=== PATIENT | male | born 1960 | race African-American/Black ===

== ENCOUNTER → 2018-07-30 | Outpatient (CLI) | payer OTHER ==
[2015-07-06 15:00] VITALS: BP 113/74
[~2018-07-30] MED LIST: ACET325T9 PO; AMIO200T PO; AMLO10TA8 PO; ASPI-482 PO; ASPI325T11 PO; ATOR10TA60 PO; ATOR20TA58 PO; CINA30TA2 PO; CLON0.1T PO; CLOP75TA PO; DOCU100C28 PO; FERR325T14 PO; FERR325T72 PO; GLYB5TAB3 PO; INSU100V13 SQ; ISOS30TA4 PO; LISI-338 PO; METO25TA4 PO; METO50TA6 PO; Metoprolol Tartrate PO; NITR0.4T SL; OXYC1TAB15 PO; OXYC1TAB7 PO; Oxycodone Hcl/Acetaminophen PO; REGADENOSON 0.4 MG/5 ML DISP.SYRIN. IV ONE; TICA90TA PO
--- NOTE | 2018-07-30 12:52 | RAD ---
MR#: [id number] Date of Study: 07/30/2018 Ordering Physician: MAURICE BRITT, Referring Physician: SALEEM ARGUELLES Tech: RT Amalia BrooksR) (N) APPROVED REPORT Test Type: Pharmacological Stress Nurse/Tech: Yanna Brennan R.N., Courtney Myers RN Test Indications: chest pain, CAD Cardiac History: Hypertension, , Family history, CAD, bypass, stents Medications: See Electronic Medical Record Medical History: See Electronic Medical Record Resting ECG: SB with PAC's Resting Heart Rate: 51 bpm Resting Blood Pressure: 114/73mmHg Pretest Chest Pain: No chest pain Nurse/Tech Notes S1S2. Lungs sounded clear. Consent: The procedure was explained to the patient in lay terms. Informed consent was witnessed. Nelson eout was entered into [employer]. History and Stress Test performed by Yanna Brennan R.N., Courtney meza RN Pharm. Details Pharmacologic stress testing was performed using 0.4mg per 5ml of regadenoson given intravenously ove r 7-10 seconds. Stress Symptoms No chest pain or symptoms. POST EXERCISE Reason for Termination: Infusion complete Max HR: 93 bpm Max Blood Pressure: 123/56mmHg Chest Pain: No. Arrhythmia: No. rare PVC ST Change: No. INTERPRETATION Stress EKG Conclusion: Baseline EKG showed sinus rhythm. No ischemic changes at peak stress. No arr hythmias. Imaging Protocol IMAGE PROTOCOL: Rest Tc-99m/stress Tc-99m 1 day Rest: Stress: Viability: Radiopharm.Tc99m [id number] Sestamibi Dose10.2mCi 33mCi Duration 13min. 13min. Img Date 07/30/2018 07/30/2018 Inj-Img [id number]. 60min. Rest Admin Site:IV - Left AntecubitalAdministrator:RT Cecilia (R)(N) Stress Admin Site: IV - Left AntecubitalAdministrator: AMANDA Sal STRESS DATA End Diast. Vol.141.0mlLVEDV index BSA64.0ml End Syst. Vol.39.0mlLVESV index BSA17.0ml Myocardial Jlkz344.0gEject. Vclpllnm49.0% Stress Scores Regional WT0.00Summed WT0.00 Regional WM0.00Summed WM1.00 LV Perfusion Scintigraphic images showed small reversible defect involving the apical wall consistent with ischemi a. Wall Motion Normal left ventricle systolic function with ejection fraction calculated at 72%. LV Perf. Quant 17 Seg. SSS6.00 17 Seg. SRS1.00 17 Seg. SDS5.00 Stress Defect Extent (% LAD)3.80Rest Defect Extent (% LAD)0.00Rev. Defect Extent (% LAD)3.80 Stress Defect Extent (% LCX) 20.00Rest Defect Extent (% LCX)5.00Rev. Defect Extent (% LCX)12.50 Stress Defect Extent (% RCA)0.00Rest Defect Extent (% RCA)0.00Rev. Defect Extent (% RCA)0.00 Stress Defect Extent (% EFRAIN)5.40Rest Defect Extent (% EFRAIN)1.70Rev. Defect Extent (% EFRAIN)4.10 Conclusion 1. Regadenoson cardioisotope stress test showed small amount of apical wall ischemia. 2. Normal left ventricular systolic function with ejection fraction calculated at 72%. 3. Low to intermediate risk for cardiac events. Signed by : Pee Barragan, Electronically Approved : 07/30/2018 12:52:07
== END | disposition home or self-care (01) ==
LOC: NM 08:12
PROVIDERS: ATTEND Internal Medicine Cardiovascular Disease
DX: I25.10 Atherosclerotic heart disease of native coronary artery without angina pectoris (principal); R07.9 Chest pain, unspecified; I10 Essential (primary) hypertension; Z82.49 Family history of ischemic heart disease and other diseases of the circulatory system; Z95.1 Presence of aortocoronary bypass graft
CPT/HCPCS: 78452; 93017; 96374; A9500; J2785

== ENCOUNTER 2019-02-06 05:44 | Inpatient (IN) | payer OTHER ==
[~2019-02-06] VITALS: Ht 185.4 cm; Wt 97.5 kg
[~2019-02-06 05:44] MED LIST changes: -REGADENOSON 0.4 MG/5 ML DISP.SYRIN. IV ONE
[2019-02-06] MEDS ORDERED: ISOS60TA2 PO (06:02)
[2019-02-06] MEDS ORDERED: EZET10TA20 PO (06:02)
[2019-02-06] MEDS ORDERED: LISI-338 PO (06:02)
[2019-02-06] MEDS ORDERED: GABA300C18 PO (06:02)
--- NOTE | 2019-02-06 06:17 | PHYS DOC ---
Past Medical History Past Medical History: CAD, Diabetes-Type II, High Cholesterol, Hypertension, [place] Additional Past Medical Histor: HIATEL HERNIA Past Surgical History: Coronary Bypass Surgery, Other Additional Past Surgical Histo: 4 STENTS PLACED, RIGHT ROTATOR CUFF, EYE SX X 2 Alcohol Use: None Drug Use: None Adult General Chief Complaint Chief Complaint: RECTAL BLEED HPI HPI 58-year-old gentleman presenting to the emergency department today with bright red blood in his stools over the past 12 hours. He has had 2 stools with large amounts of blood in the toilet. He does not feel lightheaded or have any pain. He has a history of a CABG and is on ticagrelor and aspirin. Location GI tract. No alleviating or exacerbating factors. Review of systems is negative for chest pain shortness of breath abdominal pain vomiting fevers or chills. All other review of systems negative. ED course: 58-year-old male presenting with a GI bleed. Vital signs unremarkable. Abdomen is soft and nontender without rebound tenderness or guarding. Blood work EKG and troponin ordered. EKG obtained and reviewed by myself shows sinus rhythm with regular rate. ST segments congruent. Not s uggestive of ACS. Otherwise hemoglobin is dropping one point from previous. I spoke with GI director utilization management. We will admit the patient to Dr. Chavez. Allergies Allergies Allergies Coded Allergies Type Severity Reaction Last Updated Verified No Known Drug Allergies 03/19/16 No Physical Exam Physical Exam Constitutional: Well developed, well nourished, no acute distress, non-toxic appearance. [] HENT: Normocephalic, atraumatic, bilateral external ears normal, oropharynx moist, no oral exudates, nose normal. [] Eyes: PERRLA, EOMI, conjunctiva normal, no discharge. [] Neck: Normal range of motion, no tenderness, supple, no stridor. [] Cardiovascular:Heart rate regular rhythm, no murmur [] Lungs & Thorax: Bilateral breath sounds clear to auscultation [] Abdomen: Bowel sounds normal, soft, no tenderness, no masses, no pulsatile masses. Skin: Warm, dry, no erythema, no rash. [] Back: No tenderness, no CVA tenderness. [] Extremities: No tenderness, no cyanosis, no clubbing, ROM intact, no edema. [] Neurologic: Alert and oriented X 3, normal motor function, normal sensory function, no focal deficits noted. [] Psychologic: Affect normal, judgement normal, mood normal. [] Current Patient Data Vital Signs Vital Signs Date Time Temp Pulse Resp B/P (MAP) Pulse Ox O2 Delivery O2 Flow Rate FiO2 02/06/19 07:19 66 17 121/78 (92) 100 Room Air 02/06/19 05:50 98.3 98.3 Lab Values Laboratory Tests Test 02/06/19 06:00 02/06/19 06:10 Troponin I Quantitative < 0.017 ng/mL (0.000-0.055) White Blood Count 8.1 x10^3/uL (4.0-11.0) Red Blood Count 3.84 x10^6/uL (4.30-5.70) L Hemoglobin 12.1 g/dL (13.0-17.5) L Hematocrit 36.2 % (39.0-53.0) L Mean Corpuscular Volume 94 fL (79-100) Mean Corpuscular Hemoglobin 32 pg (25-35) Mean Corpuscular Hemoglobin Concent 34 g/dL (31-37) Red Cell Distribution Width 13.9 % (11.5-14.5) Platelet Count 238 x10^3/uL (140-400) Neutrophils (%) (Auto) 62 % (31-73) Lymphocytes (%) (Auto) 27 % (24-48) Monocytes (%) (Auto) 9 % (0-9) Eosinophils (%) (Auto) 2 % (0-3) Basophils (%) (Auto) 1 % (0-3) Neutrophils # (Auto) 5.0 x10^3/uL (1.8-7.7) Lymphocytes # (Auto) 2.1 x10^3/uL (1.0-4.8) Monocytes # (Auto) 0.7 x10^3/uL (0.0-1.1) Eosinophils # (Auto) 0.2 x10^3/uL (0.0-0.7) Basophils # (Auto) 0.0 x10^3/uL (0.0-0.2) Prothrombin Time 13.4 SEC (11.7-14.0) Prothrombin Time INR 1.1 (0.8-1.1) Activated Partial Thromboplast Time 30 SEC (24-38) Urine Collection Type Void Urine Color Yellow Urine Clarity Clear Urine pH 5.0 Urine Specific [place] 1.020 Urine Protein Negative mg/dL (NEG-TRACE) Urine Glucose (UA) Negative mg/dL (NEG) Urine Ketones (Stick) Negative mg/dL (NEG) Urine Blood Moderate (NEG) Urine Nitrite Negative (NEG) Urine Bilirubin Negative (NEG) Urine Urobilinogen Dipstick 0.2 mg/dL (0.2 mg/dL) Urine Leukocyte Esterase Negative (NEG) Urine RBC 0 /HPF (0-2) Urine WBC 0 /HPF (0-4) Urine Squamous Epithelial Cells Few /LPF Urine Bacteria 0 /HPF (0-FEW) Urine Mucus Mod /LPF Stool Occult Blood Positive (NEG) Sodium Level 141 mmol/L (136-145) Potassium Level 3.9 mmol/L (3.5-5.1) Chloride Level 106 mmol/L (98-107) Carbon Dioxide Level 26 mmol/L (21-32) Anion Gap 9 (6-14) Blood Urea Nitrogen 14 mg/dL (8-26) Creatinine 1.0 mg/dL (0.7-1.3) Estimated GFR (Cockcroft-Gault) 92.2 BUN/Creatinine Ratio 14 (6-20) Glucose Level 140 mg/dL (70-99) H Calcium Level 8.5 mg/dL (8.5-10.1) Total Bilirubin 0.9 mg/dL (0.2-1.0) Direct Bilirubin 0.1 mg/dL (0.0-0.2) Aspartate Amino Transferase (AST) 13 U/L (15-37) L Alanine Aminotransferase (ALT) 16 U/L (16-63) Alkaline Phosphatase 70 U/L (46-116) Total Protein 7.2 g/dL (6.4-8.2) Albumin 3.6 g/dL (3.4-5.0) Albumin/Globulin Ratio 1.0 (1.0-1.7) Laboratory Tests 02/06/19 06:10 Laboratory Tests 02/06/19 06:10 EKG EKG [] Radiology/Procedures Radiology/Procedures [] Course & Med Decision Making Course & Med Decision Making Pertinent Labs and Imaging studies reviewed. (See chart for details) [] Dragon Disclaimer Dragon Disclaimer This electronic medical record was generated, in whole or in part, using a voice recognition dictation system. Departure Departure Impression: Primary Impression: GI bleed Disposition: ADMITTED INPATIENT Admitting Physician: SWATI Condition: STABLE Referrals: VIOLETTE GREGORIO MD (PCP) JOHNNA TOURE MD Feb 06, 2019 06:17
[2019-02-06 06:33] LABS: CALCIUM 8.5 mg/dL (8.5-10.1); GFR 92.2; POTASSIUM 3.9 mmol/L (3.5-5.1)
[2019-02-06 06:42] LABS: FECAL OB PT POSITIVE (NEG)
[2019-02-06 06:47] LABS: ALBUMIN 3.6 g/dL (3.4-5.0); BASO % 1 % (0-3); DIRECT BILIRUBIN 0.1 mg/dL (0.0-0.2); EOS # 0.2 x10^3/uL (0.0-0.7); EOS % 2 % (0-3); HEMATOCRIT 36.2 % (39.0-53.0); HEMOGLOBIN 12.1 g/dL (13.0-17.5); LYMPH # 2.1 x10^3/uL (1.0-4.8); LYMPH % 27 % (24-48); MEAN CORPUSCULAR HEMOGLOBIN 32 pg (25-35); MEAN CORPUSCULAR HGB CONC 34 g/dL (31-37); MEAN CORPUSCULAR VOLUME 94 fL (79-100); MONO # 0.7 x10^3/uL (0.0-1.1); MONO % 9 % (0-9); NEUT % 62 % (31-73); PLATELET COUNT 238 x10^3/uL (140-400); RED BLOOD COUNT 3.84 x10^6/uL (4.30-5.70); RED CELL DISTRIBUTION WIDTH 13.9 % (11.5-14.5); TOTAL BILIRUBIN 0.9 mg/dL (0.2-1.0); TOTAL PROTEIN 7.2 g/dL (6.4-8.2); WHITE BLOOD COUNT 8.1 x10^3/uL (4.0-11.0)
[2019-02-06 06:52] LABS: BILIRUBIN,URINE NEGATIVE (NEG); CLARITY,URINE CLEAR; COLOR,URINE YELLOW; NITRITE,URINE NEGATIVE (NEG); PROTEIN,URINE NEGATIVE (NEG-TRACE); UROBILINOGEN,URINE 0.2 mg/dL (0.2 mg/dL)
[2019-02-06 07:04] LABS: PROTHROMBIN TIME PATIENT 13.4 SEC (11.7-14.0)
[2019-02-06 07:09] LABS: BACTERIA,URINE 0 /HPF (0-FEW); RBC,URINE 0 /HPF (0-2); SQUAMOUS EPITHELIAL CELL,UR FEW /LPF; WBC,URINE 0 /HPF (0-4)
--- NOTE | 2019-02-06 07:35 | PDOC1 ---
History and Physical Date of Admission Date of Admission DATE: 02/06/19 TIME: 07:33 Identification/Chief Complaint Chief Complaint SEEN IN Emergency department today with bright red blood in his stools over the past 12 hours. He has had 2 stools with large amounts of blood in the toilet. He does not feel lightheaded or have any pain. He has a history of a CABG and is on ticagrelor and aspirin. Review of systems is negative for chest pain shortness of breath abdominal pain vomiting fevers or chills. 58-year-old male presenting with a GI bleed. Vital signs unremarkable. Abdomen is soft and nontender without rebound tenderness or guarding. GI CONSULTED hemoglobin is dropping one point from previous. Past Medical History Past Medical History Past Medical History Past Medical History: CAD, Diabetes-Type II, High Cholesterol, Hypertension, [place] Additional Past Medical Histor: HIATEL HERNIA Past Surgical History: Coronary Bypass Surgery, Other History of coronary artery bypass graft surgery, coronary artery disease. Additional Past Surgical Histo: 4 STENTS PLACED, RIGHT ROTATOR CUFF, EYE SX X 2 Alcohol Use: None Drug Use: None family hx htn Cardiovascular: CAD, CHF, HTN, Hyperlipidemia Endocrine: Diabetes Past Surgical History Past Surgical History: CABG, Other Family History Family History Past Medical History Cardiovascular: CAD, CHF, HTN, Hyperlipidemia Endocrine: Diabetes Past Surgical History Past Surgical History: CABG, Other (coronary stenting) Family History Family History: Coronary Artery Disease Social History No ALCOHOL: none Drugs: None Lives: with Family Domestic Violence: Neg Family History: Coronary Artery Disease Social History ALCOHOL: none Drugs: None Current Problem List Problem List Problems Medical Problems: (1) GI bleed Status: Acute Current Medications Current Medications Active Scripts Active Brilinta (Ticagrelor) 90 Mg Tablet 90 Mg PO BID Nitrostat (Nitroglycerin) 0.4 Mg Tab.subl 0.4 Mg SL PRN Q5MIN PRN Reported Zetia (Ezetimibe) 10 Mg Tablet 10 Mg PO DAILY Gabapentin (Gabapentin) 300 Mg Capsule 300 Mg PO BID Isosorbide Mononitrate Er (Isosorbide Mononitrate) 60 Mg Tab.er.24h 60 Mg PO DAILY Lisinopril 5 Mg Tablet 5 Mg PO DAILY Aspir 81 (Aspirin) 81 Mg Tablet.dr 1 Tab PO DAILY LAST DOSE GIVEN: DATE: 2014 TIME: 9:00 am NEXT DOSE DUE: DATE: 2014 TIME: 9:00 am Metoprolol Tartrate 25 Mg Tablet 0.5 Tab PO BID LAST DOSE GIVEN: DATE: 2014 TIME: 9:00 am NEXT DOSE DUE: DATE: 2014 TIME: 9:00 pm Allergies Allergies: Coded Allergies: No Known Drug Allergies (Unverified , 03/19/16) ROS Review of System Review of Systems Review of Systems Constitutional: Denies fever or chills. [] Eyes: Denies change in visual acuity. [] HENT: Denies nasal congestion or sore throat. [] Respiratory: Denies cough, reports shortness of breath. [] Cardiovascular: Reports chest pain, denies edema. [] GI: Denies abdominal pain, nausea, vomiting, POS FOR bloody stools [] : Denies dysuria. [] Musculoskeletal: Denies back pain or joint pain. [] Integument: Denies rash. [] Neurologic: Denies headache, focal weakness or sensory changes. [] Psychiatric: Denies depression or anxiety. [] 14 PT ROS OTHERWISE NEG Gastrointestinal: Yes Melena Physical Exam Physical Exam Physical Exam Physical Exam Constitutional: Well developed, well nourished, no acute distress, non-toxic appearance. [] HENT: Normocephalic, atraumatic, bilateral external ears normal, oropharynx moist, no oral exudates, nose normal. [] Eyes: PERRLA, EOMI, conjunctiva normal, no discharge. [] Neck: Normal range of motion, no tenderness, supple, no stridor. [] Cardiovascular:Heart rate regular rhythm, no murmur [] Lungs & Thorax: Bilateral breath sounds clear to auscultation [] Abdomen: Bowel sounds normal, soft, no tenderness, no masses, no pulsatile masses. Skin: Warm, dry, no erythema, no rash. [] Back: No tenderness, no CVA tenderness. [] Extremities: No tenderness, no cyanosis, no clubbing, ROM intact, no edema. [] Neurologic: Alert and oriented X 3, normal motor function, normal sensory function, no focal deficits noted. [] Psychologic: Affect normal, judgement normal, mood normal. [] General: Alert, Oriented X3, Cooperative Abdomen: Soft Rectal Exam: not examined PELVIC: Examination not indicated Extremities: No cyanosis Neuro: Normal speech, Cranial nerves 3-12 NL Psych/Mental Status: Mood NL Vitals Vitals Vital Signs Date Time Temp Pulse Resp B/P (MAP) Pulse Ox O2 Delivery O2 Flow Rate FiO2 02/06/19 05:50 98.3 71 13 138/91 (107) 99 Room Air 98.3 Labs Labs Laboratory Tests Test 02/06/19 06:00 02/06/19 06:10 Troponin I Quantitative < 0.017 ng/mL (0.000-0.055) White Blood Count 8.1 x10^3/uL (4.0-11.0) Red Blood Count 3.84 x10^6/uL (4.30-5.70) Hemoglobin 12.1 g/dL (13.0-17.5) Hematocrit 36.2 % (39.0-53.0) Mean Corpuscular Volume 94 fL (79-100) Mean Corpuscular Hemoglobin 32 pg (25-35) Mean Corpuscular Hemoglobin Concent 34 g/dL (31-37) Red Cell Distribution Width 13.9 % (11.5-14.5) Platelet Count 238 x10^3/uL (140-400) Neutrophils (%) (Auto) 62 % (31-73) Lymphocytes (%) (Auto) 27 % (24-48) Monocytes (%) (Auto) 9 % (0-9) Eosinophils (%) (Auto) 2 % (0-3) Basophils (%) (Auto) 1 % (0-3) Neutrophils # (Auto) 5.0 x10^3/uL (1.8-7.7) Lymphocytes # (Auto) 2.1 x10^3/uL (1.0-4.8) Monocytes # (Auto) 0.7 x10^3/uL (0.0-1.1) Eosinophils # (Auto) 0.2 x10^3/uL (0.0-0.7) Basophils # (Auto) 0.0 x10^3/uL (0.0-0.2) Prothrombin Time 13.4 SEC (11.7-14.0) Prothromb Time International Ratio 1.1 (0.8-1.1) Activated Partial Thromboplast Time 30 SEC (24-38) Urine Collection Type Void Urine Color Yellow Urine Clarity Clear Urine pH 5.0 Urine Specific Perry 1.020 Urine Protein Negative mg/dL (NEG-TRACE) Urine Glucose (UA) Negative mg/dL (NEG) Urine Ketones (Stick) Negative mg/dL (NEG) Urine Blood Moderate (NEG) Urine Nitrite Negative (NEG) Urine Bilirubin Negative (NEG) Urine Urobilinogen Dipstick 0.2 mg/dL (0.2 mg/dL) Urine Leukocyte Esterase Negative (NEG) Urine RBC 0 /HPF (0-2) Urine WBC 0 /HPF (0-4) Urine Squamous Epithelial Cells Few /LPF Urine Bacteria 0 /HPF (0-FEW) Urine Mucus Mod /LPF Stool Occult Blood Positive (NEG) Sodium Level 141 mmol/L (136-145) Potassium Level 3.9 mmol/L (3.5-5.1) Chloride Level 106 mmol/L (98-107) Carbon Dioxide Level 26 mmol/L (21-32) Anion Gap 9 (6-14) Blood Urea Nitrogen 14 mg/dL (8-26) Creatinine 1.0 mg/dL (0.7-1.3) Estimated GFR (Cockcroft-Gault) 92.2 BUN/Creatinine Ratio 14 (6-20) Glucose Level 140 mg/dL (70-99) Calcium Level 8.5 mg/dL (8.5-10.1) Total Bilirubin 0.9 mg/dL (0.2-1.0) Direct Bilirubin 0.1 mg/dL (0.0-0.2) Aspartate Amino Transf (AST/SGOT) 13 U/L (15-37) Alanine Aminotransferase (ALT/SGPT) 16 U/L (16-63) Alkaline Phosphatase 70 U/L (46-116) Total Protein 7.2 g/dL (6.4-8.2) Albumin 3.6 g/dL (3.4-5.0) Albumin/Globulin Ratio 1.0 (1.0-1.7) Laboratory Tests Test 02/06/19 06:00 02/06/19 06:10 Troponin I Quantitative < 0.017 ng/mL (0.000-0.055) White Blood Count 8.1 x10^3/uL (4.0-11.0) Red Blood Count 3.84 x10^6/uL (4.30-5.70) Hemoglobin 12.1 g/dL (13.0-17.5) Hematocrit 36.2 % (39.0-53.0) Mean Corpuscular Volume 94 fL (79-100) Mean Corpuscular Hemoglobin 32 pg (25-35) Mean Corpuscular Hemoglobin Concent 34 g/dL (31-37) Red Cell Distribution Width 13.9 % (11.5-14.5) Platelet Count 238 x10^3/uL (140-400) Neutrophils (%) (Auto) 62 % (31-73) Lymphocytes (%) (Auto) 27 % (24-48) Monocytes (%) (Auto) 9 % (0-9) Eosinophils (%) (Auto) 2 % (0-3) Basophils (%) (Auto) 1 % (0-3) Neutrophils # (Auto) 5.0 x10^3/uL (1.8-7.7) Lymphocytes # (Auto) 2.1 x10^3/uL (1.0-4.8) Monocytes # (Auto) 0.7 x10^3/uL (0.0-1.1) Eosinophils # (Auto) 0.2 x10^3/uL (0.0-0.7) Basophils # (Auto) 0.0 x10^3/uL (0.0-0.2) Prothrombin Time 13.4 SEC (11.7-14.0) Prothromb Time International Ratio 1.1 (0.8-1.1) Activated Partial Thromboplast Time 30 SEC (24-38) Urine Collection Type Void Urine Color Yellow Urine Clarity Clear Urine pH 5.0 Urine Specific Perry 1.020 Urine Protein Negative mg/dL (NEG-TRACE) Urine Glucose (UA) Negative mg/dL (NEG) Urine Ketones (Stick) Negative mg/dL (NEG) Urine Blood Moderate (NEG) Urine Nitrite Negative (NEG) Urine Bilirubin Negative (NEG) Urine Urobilinogen Dipstick 0.2 mg/dL (0.2 mg/dL) Urine Leukocyte Esterase Negative (NEG) Urine RBC 0 /HPF (0-2) Urine WBC 0 /HPF (0-4) Urine Squamous Epithelial Cells Few /LPF Urine Bacteria 0 /HPF (0-FEW) Urine Mucus Mod /LPF Stool Occult Blood Positive (NEG) Sodium Level 141 mmol/L (136-145) Potassium Level 3.9 mmol/L (3.5-5.1) Chloride Level 106 mmol/L (98-107) Carbon Dioxide Level 26 mmol/L (21-32) Anion Gap 9 (6-14) Blood Urea Nitrogen 14 mg/dL (8-26) Creatinine 1.0 mg/dL (0.7-1.3) Estimated GFR (Cockcroft-Gault) 92.2 BUN/Creatinine Ratio 14 (6-20) Glucose Level 140 mg/dL (70-99) Calcium Level 8.5 mg/dL (8.5-10.1) Total Bilirubin 0.9 mg/dL (0.2-1.0) Direct Bilirubin 0.1 mg/dL (0.0-0.2) Aspartate Amino Transf (AST/SGOT) 13 U/L (15-37) Alanine Aminotransferase (ALT/SGPT) 16 U/L (16-63) Alkaline Phosphatase 70 U/L (46-116) Total Protein 7.2 g/dL (6.4-8.2) Albumin 3.6 g/dL (3.4-5.0) Albumin/Globulin Ratio 1.0 (1.0-1.7) Images Images Procedures Left heart catheterization. Left ventriculogram. Selective coronary angiogram. Aortic root injection. The patient is a pleasant 53-year-old male with recently diagnosed diabetes mellitus and new onset of chest discomfort. Patient was admitted and monitored overnight. Troponin elevated to 0.6. In the setting of his new onset chest pain, risk factors and mildly elevated troponin a cardiac catheterization was recommended to the patient. Risks and benefits were discussed. The patient consented to a heart catheterization. After informed consent was obtained the patient was brought to the heart catheterization lab. The area of the right femoral artery was prepared in the usual manner with Betadine, sterile draping and local anesthetic. An 18-gauge needle was used to enter the right femoral artery, a wire placed a 6 Macanese sheath placed over the wire. A 6 Macanese JL4 and then JL 5 diagnostic catheters were used to engage the left coronary system and sequential injections in various views were obtained. A 6 Macanese Jose right catheter was then used to engage the right coronary artery and sequential injections in various views were obtained. A pigtail catheter was advanced to the ascending aorta and then the left ventricle. Pressures were obtained. A 30� VILLARREAL left ventriculogram was performed. Pullback pressures were measured. A 30� DEE aortic root injection was performed. Catheters removed from the patient. Injection of the sheath showed normal placement. The sheath was removed and sealed with an Angio-Seal product. The patient was moved to the holding area in stable condition. There were no complications. Hemodynamics Left ventricular pressure of 148/24, aortic root pressure 146/80. Coronaries Left main. The left main had no lesions. Left anterior descending. The LAD had a proximal 90-95% lesion, a proximal to mid 75-80% lesion, a more distal 60-70% lesion in the first diagonal lesion of 50%. Left circumflex. The left circumflex had a proximal 40% lesion, a mid subtotal lesion in obtuse marginal 1 branch of the 70-75% lesion. Ramus intermediate. The ramus intermediate branch was large and had a proximal 60-70% lesion. The right coronary artery was a moderate size vessel. He had a proximal 25% lesion. Left ventriculogram. The left ventricle showed low normal LV systolic function. Estimated ejection fraction was 50%. There was no mitral regurgitation. Aortic root. The aortic root was large but not aneurysmal. There was no aortic insufficiency. <Conclusion> Multivessel coronary artery disease with multiple lesions in the LAD in a diabetic patient. Left ventricular ejection fraction of 50% Large aortic root but not aneurysmal with no aortic insufficiency. DICTATED and SIGNED BY: MAURICE BRITT MD DATE: 07/05/14 1533 Mitral Valve MV E Velocity 62.9cm/s MV E Peak Gr. 2mmHg MV DECEL TIME 194ms MV A Velocity 51.3cm/s MV E Mean Gr. 1mmHg MV PHT 55ms E/A Ratio 1.2 MV A Duration 134ms MVA (PHT) 4.01cm2 Tricuspid Valve TR P. Velocity 262cm/s TR Peak Gr. 28mmHg LEFT VENTRICLE The left ventricle is normal size. There is borderline concentric left ventricular hypertrophy. Left ventricle systolic function is low normal. The Ejection Fraction is 40-45% Global hypokinesis. Septal motion consistent with post-operative state. The left ventricular diastolic function and filling is normal for age. RIGHT VENTRICLE The right ventricle is normal size. The right ventricular systolic function is normal. ATRIA The left atrium is borderline dilated. The right atrium size is normal. The interatrial septum is intact with no evidence for an atrial septal defect or patent foramen ovale as noted on 2-D or Doppler imaging. AORTIC VALVE The aortic valve is mildly sclerotic Doppler and Color Flow revealed trace aortic regurgitation. There is no significant aortic valvular stenosis. MITRAL VALVE The mitral valve is normal in structure and function. There is no mitral valve stenosis. Doppler and Color Flow revealed mild mitral regurgitation. TRICUSPID VALVE The tricuspid valve is normal in structure and function. Doppler and Color Flow revealed trace to mild tricuspid regurgitation. The PA pressure was estimated at 31 mmHg. There is no tricuspid valve stenosis. PULMONIC VALVE The pulmonary valve is normal in structure and function. Doppler and Color Flow revealed trace pulmonic valvular regurgitation. There is no pulmonic valvular stenosis. GREAT VESSELS The aortic root is normal in size. Normal pulmonary venous flow (Doppler). The IVC is normal in size and collapses >50% with inspiration. PERICARDIAL EFFUSION There is no evidence of significant pericardial effusion. Critical Notification Critical Value: No <Conclusion> Mild LV systolic dysfunction. EF 40-45% Global hypokinesis. No significant valvular abnormalities. DICTATED and SIGNED BY: PHAM ALANIZ MD DATE: 03/16/15 1325 VTE Prophylaxis Ordered VTE Prophylaxis Devices: Yes VTE Pharmacological Prophylaxi: Contraindicated Assessment/Plan Assessment/Plan Impression: ACUTE GI bleed CAD HX CHF ADMITTED GI CONSULT IV FLUID SUPPORT H/H QV 8 HRS Cardiology consult iv SIMON Marmolejo MD Feb 06, 2019 07:35
[2019-02-06] MEDS ORDERED: ONDANSETRON PF 4 MG/2 ML VIAL. IV PRN (08:45)
[2019-02-06] MEDS ORDERED: MORPHINE SULFATE 2 MG/ML VIAL. IV PRN (08:45)
[2019-02-06 11:00] VITALS: BP 121/68
[2019-02-06] MEDS ORDERED: ALBUTEROL SULFATE 2.5 MG/3 ML NEBU. NEB PRN (12:45)
[2019-02-06] MEDS ORDERED: cloNIDine HCL 0.1 MG TABLET PO PRN (12:45)
[2019-02-06] MEDS ORDERED: guaiFENesin ORAL 200 MG/10 ML LIQUID. PO PRN (12:45)
[2019-02-06] MEDS ORDERED: 0.9 % SODIUM CHLORIDE 10 ML DISP.SYRIN. IV PRN (12:45)
[2019-02-06] MEDS ORDERED: LORazepam 0.5 MG TABLET PO PRN (12:45)
[2019-02-06 14:23] LABS: HEMOGLOBIN 11.3 g/dL (13.0-17.5); RED BLOOD COUNT 3.6 x10^6/uL (4.30-5.70); RED CELL DISTRIBUTION WIDTH 13.8 % (11.5-14.5)
[2019-02-06] MEDS: FAMOTIDINE 20 MG/2 ML VIAL IVP SCH ×2 (14:41→21:55)
[2019-02-06] MEDS: IV NORMAL SALINE 1000ML BAG 1,000 ML IV SCH (14:43)
[2019-02-06 15:00] VITALS: BP 115/70
--- NOTE | 2019-02-06 16:42 | PDOC2 ---
CONSULT Date of Consult Date of Consult DATE: 02/06/19 TIME: 16:36 Reason for Consult Reason for Consult: painless hematochezia History of Present Illness Reason for Visit: This is a 58-year-old gentleman who denies any chronic GI complaints including constipation. He does relate that he is on a stool softener due to some mild slowing in his bowel pattern due to multiple medications. However he denies constipation, abdominal pain or previous bleeding until yesterday. He had at least 2 episodes of bright red blood in his stool and that recurred today as well. These were painless. There was no abdominal pain no rectal pain, no nausea or vomiting. He is on Brilanta and aspirin due to multiple stents and previous heart disease. However he's never had a bleeding problem with this medication before. Unfortunately, he has never had a colonoscopy so numerous possible sources for this bleeding should be considered. Based on these history and findings he was admitted for observation and consideration of further workup. Past Medical History Cardiovascular: CAD, CHF, HTN, Hyperlipidemia Endocrine: Diabetes Past Surgical History Past Surgical History: CABG, Other Family History Family History: Coronary Artery Disease Social History ALCOHOL: none Drugs: None Lives: with Family Domestic Violence: Neg Current Problem List Problem List Problems Medical Problems: (1) GI bleed Status: Acute Current Medications Current Medications Current Medications Ondansetron HCl (Zofran) 4 mg PRN Q8HRS PRN IV NAUSEA/VOMITING; Start 02/06/19 at 08:45; Stop 02/07/19 at 08:44 Morphine Sulfate (Morphine Sulfate) 2 mg PRN Q2HR PRN IV PAIN; Start 02/06/19 at 08:45; Stop 02/07/19 at 08:44 Famotidine (Pepcid Vial) 20 mg BID IVP Last administered on 02/06/19at 14:43; Start 02/06/19 at 11:00 Sodium Chloride (Normal Saline Flush) 3 ml QSHIFT PRN IV AFTER MEDS AND BLOOD DRAWS; Start 02/06/19 at 12:45 Sodium Chloride 1,000 ml @ 100 mls/hr Q10H IV Last administered on 02/06/19at 14:43; Start 02/06/19 at 12:32 Acetaminophen (Tylenol) 650 mg PRN Q4HRS PRN PO TEMP OVER 100.4F OR MILD PAIN; Start 02/06/19 at 12:45 Clonidine HCl (Catapres) 0.1 mg PRN Q6HRS PRN PO SBP>160 OR DBP>90; Start 02/06/19 at 12:45 Albuterol Sulfate (Ventolin Neb Soln) 2.5 mg PRN Q4HRS PRN NEB SHORTNESS OF BREATH; Start 02/06/19 at 12:45 Guaifenesin (Robitussin) 200 mg PRN Q4HRS PRN PO COUGH; Start 02/06/19 at 12:45 Lorazepam (Ativan) 0.5 mg PRN Q4HRS PRN PO ANXIETY / AGITATION; Start 02/06/19 at 12:45 Active Scripts Active Brilinta (Ticagrelor) 90 Mg Tablet 90 Mg PO BID Nitrostat (Nitroglycerin) 0.4 Mg Tab.subl 0.4 Mg SL PRN Q5MIN PRN Reported Zetia (Ezetimibe) 10 Mg Tablet 10 Mg PO DAILY Gabapentin (Gabapentin) 300 Mg Capsule 300 Mg PO BID Isosorbide Mononitrate Er (Isosorbide Mononitrate) 60 Mg Tab.er.24h 60 Mg PO DAILY Lisinopril 5 Mg Tablet 5 Mg PO DAILY Aspir 81 (Aspirin) 81 Mg Tablet.dr 1 Tab PO DAILY LAST DOSE GIVEN: DATE: 2014 TIME: 9:00 am NEXT DOSE DUE: DATE: 2014 TIME: 9:00 am Metoprolol Tartrate 25 Mg Tablet 0.5 Tab PO BID LAST DOSE GIVEN: DATE: 2014 TIME: 9:00 am NEXT DOSE DUE: DATE: 2014 TIME: 9:00 pm Allergies Allergies: Coded Allergies: No Known Drug Allergies (Unverified , 03/19/16) Physical Exam General: Alert, Oriented X3, Cooperative HEENT: Atraumatic, PERRLA Lungs: Clear to auscultation Heart: Regular rate, Normal S1, Normal S2 Abdomen: Normal bowel sounds, Soft, No tenderness, No hepatosplenomegaly, No masses Extremities: No clubbing, No cyanosis, No edema Neuro: Normal gait Psych/Mental Status: Mental status NL Vitals VITALS Vital Signs Date Time Temp Pulse Resp B/P (MAP) Pulse Ox O2 Delivery O2 Flow Rate FiO2 02/06/19 15:00 97.8 99 18 115/70 (85) 99 Room Air 97.8 Labs Labs Laboratory Tests Test 02/06/19 06:00 02/06/19 06:10 02/06/19 12:13 02/06/19 14:10 Troponin I Quantitative < 0.017 ng/mL (0.000-0.055) White Blood Count 8.1 x10^3/uL (4.0-11.0) 10.0 x10^3/uL (4.0-11.0) Red Blood Count 3.84 x10^6/uL (4.30-5.70) 3.60 x10^6/uL (4.30-5.70) Hemoglobin 12.1 g/dL (13.0-17.5) 11.3 g/dL (13.0-17.5) Hematocrit 36.2 % (39.0-53.0) 34.0 % (39.0-53.0) Mean Corpuscular Volume 94 fL (79-100) 95 fL (79-100) Mean Corpuscular Hemoglobin 32 pg (25-35) 31 pg (25-35) Mean Corpuscular Hemoglobin Concent 34 g/dL (31-37) 33 g/dL (31-37) Red Cell Distribution Width 13.9 % (11.5-14.5) 13.8 % (11.5-14.5) Platelet Count 238 x10^3/uL (140-400) 265 x10^3/uL (140-400) Neutrophils (%) (Auto) 62 % (31-73) Lymphocytes (%) (Auto) 27 % (24-48) Monocytes (%) (Auto) 9 % (0-9) Eosinophils (%) (Auto) 2 % (0-3) Basophils (%) (Auto) 1 % (0-3) Neutrophils # (Auto) 5.0 x10^3/uL (1.8-7.7) Lymphocytes # (Auto) 2.1 x10^3/uL (1.0-4.8) Monocytes # (Auto) 0.7 x10^3/uL (0.0-1.1) Eosinophils # (Auto) 0.2 x10^3/uL (0.0-0.7) Basophils # (Auto) 0.0 x10^3/uL (0.0-0.2) Prothrombin Time 13.4 SEC (11.7-14.0) Prothromb Time International Ratio 1.1 (0.8-1.1) Activated Partial Thromboplast Time 30 SEC (24-38) Urine Collection Type Void Urine Color Yellow Urine Clarity Clear Urine pH 5.0 Urine Specific [place] 1.020 Urine Protein Negative mg/dL (NEG-TRACE) Urine Glucose (UA) Negative mg/dL (NEG) Urine Ketones (Stick) Negative mg/dL (NEG) Urine Blood Moderate (NEG) Urine Nitrite Negative (NEG) Urine Bilirubin Negative (NEG) Urine Urobilinogen Dipstick 0.2 mg/dL (0.2 mg/dL) Urine Leukocyte Esterase Negative (NEG) Urine RBC 0 /HPF (0-2) Urine WBC 0 /HPF (0-4) Urine Squamous Epithelial Cells Few /LPF Urine Bacteria 0 /HPF (0-FEW) Urine Mucus Mod /LPF Stool Occult Blood Positive (NEG) Sodium Level 141 mmol/L (136-145) Potassium Level 3.9 mmol/L (3.5-5.1) Chloride Level 106 mmol/L (98-107) Carbon Dioxide Level 26 mmol/L (21-32) Anion Gap 9 (6-14) Blood Urea Nitrogen 14 mg/dL (8-26) Creatinine 1.0 mg/dL (0.7-1.3) Estimated GFR (Cockcroft-Gault) 92.2 BUN/Creatinine Ratio 14 (6-20) Glucose Level 140 mg/dL (70-99) Calcium Level 8.5 mg/dL (8.5-10.1) Total Bilirubin 0.9 mg/dL (0.2-1.0) Direct Bilirubin 0.1 mg/dL (0.0-0.2) Aspartate Amino Transf (AST/SGOT) 13 U/L (15-37) Alanine Aminotransferase (ALT/SGPT) 16 U/L (16-63) Alkaline Phosphatase 70 U/L (46-116) Total Protein 7.2 g/dL (6.4-8.2) Albumin 3.6 g/dL (3.4-5.0) Albumin/Globulin Ratio 1.0 (1.0-1.7) Glucose (Fingerstick) 106 mg/dL (70-99) Laboratory Tests Test 02/06/19 06:00 02/06/19 06:10 02/06/19 12:13 02/06/19 14:10 Troponin I Quantitative < 0.017 ng/mL (0.000-0.055) White Blood Count 8.1 x10^3/uL (4.0-11.0) 10.0 x10^3/uL (4.0-11.0) Red Blood Count 3.84 x10^6/uL (4.30-5.70) 3.60 x10^6/uL (4.30-5.70) Hemoglobin 12.1 g/dL (13.0-17.5) 11.3 g/dL (13.0-17.5) Hematocrit 36.2 % (39.0-53.0) 34.0 % (39.0-53.0) Mean Corpuscular Volume 94 fL (79-100) 95 fL (79-100) Mean Corpuscular Hemoglobin 32 pg (25-35) 31 pg (25-35) Mean Corpuscular Hemoglobin Concent 34 g/dL (31-37) 33 g/dL (31-37) Red Cell Distribution Width 13.9 % (11.5-14.5) 13.8 % (11.5-14.5) Platelet Count 238 x10^3/uL (140-400) 265 x10^3/uL (140-400) Neutrophils (%) (Auto) 62 % (31-73) Lymphocytes (%) (Auto) 27 % (24-48) Monocytes (%) (Auto) 9 % (0-9) Eosinophils (%) (Auto) 2 % (0-3) Basophils (%) (Auto) 1 % (0-3) Neutrophils # (Auto) 5.0 x10^3/uL (1.8-7.7) Lymphocytes # (Auto) 2.1 x10^3/uL (1.0-4.8) Monocytes # (Auto) 0.7 x10^3/uL (0.0-1.1) Eosinophils # (Auto) 0.2 x10^3/uL (0.0-0.7) Basophils # (Auto) 0.0 x10^3/uL (0.0-0.2) Prothrombin Time 13.4 SEC (11.7-14.0) Prothromb Time International Ratio 1.1 (0.8-1.1) Activated Partial Thromboplast Time 30 SEC (24-38) Urine Collection Type Void Urine Color Yellow Urine Clarity Clear Urine pH 5.0 Urine Specific [place] 1.020 Urine Protein Negative mg/dL (NEG-TRACE) Urine Glucose (UA) Negative mg/dL (NEG) Urine Ketones (Stick) Negative mg/dL (NEG) Urine Blood Moderate (NEG) Urine Nitrite Negative (NEG) Urine Bilirubin Negative (NEG) Urine Urobilinogen Dipstick 0.2 mg/dL (0.2 mg/dL) Urine Leukocyte Esterase Negative (NEG) Urine RBC 0 /HPF (0-2) Urine WBC 0 /HPF (0-4) Urine Squamous Epithelial Cells Few /LPF Urine Bacteria 0 /HPF (0-FEW) Urine Mucus Mod /LPF Stool Occult Blood Positive (NEG) Sodium Level 141 mmol/L (136-145) Potassium Level 3.9 mmol/L (3.5-5.1) Chloride Level 106 mmol/L (98-107) Carbon Dioxide Level 26 mmol/L (21-32) Anion Gap 9 (6-14) Blood Urea Nitrogen 14 mg/dL (8-26) Creatinine 1.0 mg/dL (0.7-1.3) Estimated GFR (Cockcroft-Gault) 92.2 BUN/Creatinine Ratio 14 (6-20) Glucose Level 140 mg/dL (70-99) Calcium Level 8.5 mg/dL (8.5-10.1) Total Bilirubin 0.9 mg/dL (0.2-1.0) Direct Bilirubin 0.1 mg/dL (0.0-0.2) Aspartate Amino Transf (AST/SGOT) 13 U/L (15-37) Alanine Aminotransferase (ALT/SGPT) 16 U/L (16-63) Alkaline Phosphatase 70 U/L (46-116) Total Protein 7.2 g/dL (6.4-8.2) Albumin 3.6 g/dL (3.4-5.0) Albumin/Globulin Ratio 1.0 (1.0-1.7) Glucose (Fingerstick) 106 mg/dL (70-99) Assessment/Plan Assessment/Plan Painless hematochezia. Set yesterday with no significant changes in bowel pattern. He is on Brilanta but has never had bleeding before. Because he has not had a colonoscopy, there are numerous possible sources for this bleeding. Those include diverticulosis, hemorrhoids, polyps, even occult neoplasia. Bleeding itself is probably more significant because of the blood pattern. However he has remained stable not only with vital signs but his hemoglobin has only dropped 0.8 g since admission. Plan: We'll go ahead and provided diet today and then will discuss options. If his hemoglobin remains stable it certainly reasonable to hold his blood thinner and consider outpatient colonoscopy sometime next week. The other possibility is to do a bowel prep tomorrow and perform a colonoscopy on Thursday or Thursday as an inpatient. Some of this will be determined by his bleeding, the change in his hemoglobin and schedule. ROBYN MADDEN MD Feb 06, 2019 16:42
--- NOTE | 2019-02-06 17:12 | PDOC2 ---
CONSULT Date of Consult Date of Consult DATE: 02/06/19 TIME: 17:06 Reason for Consult Reason for Consult: Coronary artery disease with possible GI bleed. Referring Physician Referring Physician: Dr. Chavez Identification/Chief Complaint Chief Complaint Bright red blood per rectum. Source Source: Chart review, Patient History of Present Illness Reason for Visit: The patient is a pleasant 58-year-old male who has been having bright red blood per rectum over the past 12 hours. He was brought to the emergency room for evaluation. He is hemoglobin and hematocrit have not severely decreased. He has been admitted with monitoring of his H&H as well as a GI consult pending. From a cardiac viewpoint he has a history of previous bypass surgery as well as stenting. His most recent stents were to the LAD and left circumflex on 03/19/15 and is been treated with Ticagrelor and aspirin since that time. An echocardiogram also in 2014 showed an ejection fraction of 40-45%. Clinically he reports no chest pain or shortness of breath. He has been compliant with his medications. Past Medical History Cardiovascular: CAD, CHF, HTN, Hyperlipidemia Endocrine: Diabetes Past Surgical History Past Surgical History: CABG, Other (coronary stents) Family History Family History: Coronary Artery Disease Social History No ALCOHOL: none Drugs: None Lives: with Family Domestic Violence: Neg Current Problem List Problem List Problems Medical Problems: (1) GI bleed Status: Acute Current Medications Current Medications Current Medications Ondansetron HCl (Zofran) 4 mg PRN Q8HRS PRN IV NAUSEA/VOMITING; Start 02/06/19 at 08:45; Stop 02/07/19 at 08:44 Morphine Sulfate (Morphine Sulfate) 2 mg PRN Q2HR PRN IV PAIN; Start 02/06/19 at 08:45; Stop 02/07/19 at 08:44 Famotidine (Pepcid Vial) 20 mg BID IVP Last administered on 02/06/19at 14:43; Start 02/06/19 at 11:00 Sodium Chloride (Normal Saline Flush) 3 ml QSHIFT PRN IV AFTER MEDS AND BLOOD DRAWS; Start 02/06/19 at 12:45 Sodium Chloride 1,000 ml @ 100 mls/hr Q10H IV Last administered on 02/06/19at 14:43; Start 02/06/19 at 12:32 Acetaminophen (Tylenol) 650 mg PRN Q4HRS PRN PO TEMP OVER 100.4F OR MILD PAIN; Start 02/06/19 at 12:45 Clonidine HCl (Catapres) 0.1 mg PRN Q6HRS PRN PO SBP>160 OR DBP>90; Start 02/06/19 at 12:45 Albuterol Sulfate (Ventolin Neb Soln) 2.5 mg PRN Q4HRS PRN NEB SHORTNESS OF BREATH; Start 02/06/19 at 12:45 Guaifenesin (Robitussin) 200 mg PRN Q4HRS PRN PO COUGH; Start 02/06/19 at 12:45 Lorazepam (Ativan) 0.5 mg PRN Q4HRS PRN PO ANXIETY / AGITATION; Start 02/06/19 at 12:45 Active Scripts Active Brilinta (Ticagrelor) 90 Mg Tablet 90 Mg PO BID Nitrostat (Nitroglycerin) 0.4 Mg Tab.subl 0.4 Mg SL PRN Q5MIN PRN Reported Zetia (Ezetimibe) 10 Mg Tablet 10 Mg PO DAILY Gabapentin (Gabapentin) 300 Mg Capsule 300 Mg PO BID Isosorbide Mononitrate Er (Isosorbide Mononitrate) 60 Mg Tab.er.24h 60 Mg PO DAILY Lisinopril 5 Mg Tablet 5 Mg PO DAILY Aspir 81 (Aspirin) 81 Mg Tablet.dr 1 Tab PO DAILY LAST DOSE GIVEN: DATE: 2014 TIME: 9:00 am NEXT DOSE DUE: DATE: 2014 TIME: 9:00 am Metoprolol Tartrate 25 Mg Tablet 0.5 Tab PO BID LAST DOSE GIVEN: DATE: 2014 TIME: 9:00 am NEXT DOSE DUE: DATE: 2014 TIME: 9:00 pm Allergies Allergies: Coded Allergies: No Known Drug Allergies (Unverified , 03/19/16) ROS Gastrointestinal: Yes Other (bright red blood per rectum) Physical Exam General: No acute distress HEENT: Atraumatic Lungs: Clear to auscultation Heart: Regular rate Abdomen: Normal bowel sounds Vitals VITALS Vital Signs Date Time Temp Pulse Resp B/P (MAP) Pulse Ox O2 Delivery O2 Flow Rate FiO2 02/06/19 15:00 97.8 99 18 115/70 (85) 99 Room Air 97.8 Labs Labs Laboratory Tests Test 02/06/19 06:00 9/1/19 06:10 02/06/19 12:13 02/06/19 14:10 Troponin I Quantitative < 0.017 ng/mL (0.000-0.055) White Blood Count 8.1 x10^3/uL (4.0-11.0) 10.0 x10^3/uL (4.0-11.0) Red Blood Count 3.84 x10^6/uL (4.30-5.70) 3.60 x10^6/uL (4.30-5.70) Hemoglobin 12.1 g/dL (13.0-17.5) 11.3 g/dL (13.0-17.5) Hematocrit 36.2 % (39.0-53.0) 34.0 % (39.0-53.0) Mean Corpuscular Volume 94 fL (79-100) 95 fL (79-100) Mean Corpuscular Hemoglobin 32 pg (25-35) 31 pg (25-35) Mean Corpuscular Hemoglobin Concent 34 g/dL (31-37) 33 g/dL (31-37) Red Cell Distribution Width 13.9 % (11.5-14.5) 13.8 % (11.5-14.5) Platelet Count 238 x10^3/uL (140-400) 265 x10^3/uL (140-400) Neutrophils (%) (Auto) 62 % (31-73) Lymphocytes (%) (Auto) 27 % (24-48) Monocytes (%) (Auto) 9 % (0-9) Eosinophils (%) (Auto) 2 % (0-3) Basophils (%) (Auto) 1 % (0-3) Neutrophils # (Auto) 5.0 x10^3/uL (1.8-7.7) Lymphocytes # (Auto) 2.1 x10^3/uL (1.0-4.8) Monocytes # (Auto) 0.7 x10^3/uL (0.0-1.1) Eosinophils # (Auto) 0.2 x10^3/uL (0.0-0.7) Basophils # (Auto) 0.0 x10^3/uL (0.0-0.2) Prothrombin Time 13.4 SEC (11.7-14.0) Prothromb Time International Ratio 1.1 (0.8-1.1) Activated Partial Thromboplast Time 30 SEC (24-38) Urine Collection Type Void Urine Color Yellow Urine Clarity Clear Urine pH 5.0 Urine Specific [place] 1.020 Urine Protein Negative mg/dL (NEG-TRACE) Urine Glucose (UA) Negative mg/dL (NEG) Urine Ketones (Stick) Negative mg/dL (NEG) Urine Blood Moderate (NEG) Urine Nitrite Negative (NEG) Urine Bilirubin Negative (NEG) Urine Urobilinogen Dipstick 0.2 mg/dL (0.2 mg/dL) Urine Leukocyte Esterase Negative (NEG) Urine RBC 0 /HPF (0-2) Urine WBC 0 /HPF (0-4) Urine Squamous Epithelial Cells Few /LPF Urine Bacteria 0 /HPF (0-FEW) Urine Mucus Mod /LPF Stool Occult Blood Positive (NEG) Sodium Level 141 mmol/L (136-145) Potassium Level 3.9 mmol/L (3.5-5.1) Chloride Level 106 mmol/L (98-107) Carbon Dioxide Level 26 mmol/L (21-32) Anion Gap 9 (6-14) Blood Urea Nitrogen 14 mg/dL (8-26) Creatinine 1.0 mg/dL (0.7-1.3) Estimated GFR (Cockcroft-Gault) 92.2 BUN/Creatinine Ratio 14 (6-20) Glucose Level 140 mg/dL (70-99) Calcium Level 8.5 mg/dL (8.5-10.1) Total Bilirubin 0.9 mg/dL (0.2-1.0) Direct Bilirubin 0.1 mg/dL (0.0-0.2) Aspartate Amino Transf (AST/SGOT) 13 U/L (15-37) Alanine Aminotransferase (ALT/SGPT) 16 U/L (16-63) Alkaline Phosphatase 70 U/L (46-116) Total Protein 7.2 g/dL (6.4-8.2) Albumin 3.6 g/dL (3.4-5.0) Albumin/Globulin Ratio 1.0 (1.0-1.7) Glucose (Fingerstick) 106 mg/dL (70-99) Laboratory Tests Test 02/06/19 06:00 02/06/19 06:10 02/06/19 12:13 02/06/19 14:10 Troponin I Quantitative < 0.017 ng/mL (0.000-0.055) White Blood Count 8.1 x10^3/uL (4.0-11.0) 10.0 x10^3/uL (4.0-11.0) Red Blood Count 3.84 x10^6/uL (4.30-5.70) 3.60 x10^6/uL (4.30-5.70) Hemoglobin 12.1 g/dL (13.0-17.5) 11.3 g/dL (13.0-17.5) Hematocrit 36.2 % (39.0-53.0) 34.0 % (39.0-53.0) Mean Corpuscular Volume 94 fL (79-100) 95 fL (79-100) Mean Corpuscular Hemoglobin 32 pg (25-35) 31 pg (25-35) Mean Corpuscular Hemoglobin Concent 34 g/dL (31-37) 33 g/dL (31-37) Red Cell Distribution Width 13.9 % (11.5-14.5) 13.8 % (11.5-14.5) Platelet Count 238 x10^3/uL (140-400) 265 x10^3/uL (140-400) Neutrophils (%) (Auto) 62 % (31-73) Lymphocytes (%) (Auto) 27 % (24-48) Monocytes (%) (Auto) 9 % (0-9) Eosinophils (%) (Auto) 2 % (0-3) Basophils (%) (Auto) 1 % (0-3) Neutrophils # (Auto) 5.0 x10^3/uL (1.8-7.7) Lymphocytes # (Auto) 2.1 x10^3/uL (1.0-4.8) Monocytes # (Auto) 0.7 x10^3/uL (0.0-1.1) Eosinophils # (Auto) 0.2 x10^3/uL (0.0-0.7) Basophils # (Auto) 0.0 x10^3/uL (0.0-0.2) Prothrombin Time 13.4 SEC (11.7-14.0) Prothromb Time International Ratio 1.1 (0.8-1.1) Activated Partial Thromboplast Time 30 SEC (24-38) Urine Collection Type Void Urine Color Yellow Urine Clarity Clear Urine pH 5.0 Urine Specific [place] 1.020 Urine Protein Negative mg/dL (NEG-TRACE) Urine Glucose (UA) Negative mg/dL (NEG) Urine Ketones (Stick) Negative mg/dL (NEG) Urine Blood Moderate (NEG) Urine Nitrite Negative (NEG) Urine Bilirubin Negative (NEG) Urine Urobilinogen Dipstick 0.2 mg/dL (0.2 mg/dL) Urine Leukocyte Esterase Negative (NEG) Urine RBC 0 /HPF (0-2) Urine WBC 0 /HPF (0-4) Urine Squamous Epithelial Cells Few /LPF Urine Bacteria 0 /HPF (0-FEW) Urine Mucus Mod /LPF Stool Occult Blood Positive (NEG) Sodium Level 141 mmol/L (136-145) Potassium Level 3.9 mmol/L (3.5-5.1) Chloride Level 106 mmol/L (98-107) Carbon Dioxide Level 26 mmol/L (21-32) Anion Gap 9 (6-14) Blood Urea Nitrogen 14 mg/dL (8-26) Creatinine 1.0 mg/dL (0.7-1.3) Estimated GFR (Cockcroft-Gault) 92.2 BUN/Creatinine Ratio 14 (6-20) Glucose Level 140 mg/dL (70-99) Calcium Level 8.5 mg/dL (8.5-10.1) Total Bilirubin 0.9 mg/dL (0.2-1.0) Direct Bilirubin 0.1 mg/dL (0.0-0.2) Aspartate Amino Transf (AST/SGOT) 13 U/L (15-37) Alanine Aminotransferase (ALT/SGPT) 16 U/L (16-63) Alkaline Phosphatase 70 U/L (46-116) Total Protein 7.2 g/dL (6.4-8.2) Albumin 3.6 g/dL (3.4-5.0) Albumin/Globulin Ratio 1.0 (1.0-1.7) Glucose (Fingerstick) 106 mg/dL (70-99) Assessment/Plan Assessment/Plan 1. Bright red blood per rectum. The patient appears clinically stable. GI evaluation is in progress. From a cardiac viewpoint the patient's had stents placed in 2014. We will hold his Ticagrelor and aspirin at this time. 2. Coronary artery disease with previous bypass surgery and stenting of the LAD and left circumflex in 2015. Clinically stable from a cardiac viewpoint. We'll continue baseline medications except for Ticagrelor and aspirin. 3. Mildly decreased LV systolic function. Compensated heart failure. Continue medications. 4. Hypertension. Controlled. 5. Hyperlipidemia. Continue medications and check a lipid panel. 6. Diabetes mellitus. As per the primary service. Thank you for allowing us to participate in the care of your patient. MAURICE BRITT MD Feb 06, 2019 17:12
[2019-02-06 19:00] VITALS: BP 138/71
[2019-02-06] MEDS ORDERED: NITROGLYCERIN SUBLINGUAL 0.4 MG BOTTLE OF 25. SL PRN (21:15)
[2019-02-06] MEDS: METOPROLOL TART IMMED RELEASE 25 MG TABLET. PO SCH (21:56)
[2019-02-06] MEDS: GABAPENTIN 300 MG CAPSULE. PO SCH (21:56)
[2019-02-06 22:34] LABS: HEMATOCRIT 27.8 % (39.0-53.0); HEMOGLOBIN 9.5 g/dL (13.0-17.5); RED BLOOD COUNT 2.96 x10^6/uL (4.30-5.70); RED CELL DISTRIBUTION WIDTH 13.6 % (11.5-14.5); WHITE BLOOD COUNT 7.7 x10^3/uL (4.0-11.0)
[2019-02-06 22:46] VITALS: BP 122/69
[2019-02-07] VITALS (11 sets, daily range): BP systolic 92–122; BP diastolic 51–71
[2019-02-07] MEDS: IV NORMAL SALINE 1000ML BAG 1,000 ML IV SCH ×2 (00:31→09:47)
[2019-02-07 04:56] LABS: BASO % 1 % (0-3); EOS # 0.2 x10^3/uL (0.0-0.7); EOS % 3 % (0-3); HEMATOCRIT 27.5 % (39.0-53.0); HEMOGLOBIN 9.3 g/dL (13.0-17.5); LYMPH # 2.4 x10^3/uL (1.0-4.8); LYMPH % 34 % (24-48); MEAN CORPUSCULAR HEMOGLOBIN 32 pg (25-35); MEAN CORPUSCULAR HGB CONC 34 g/dL (31-37); MEAN CORPUSCULAR VOLUME 94 fL (79-100); MONO # 0.8 x10^3/uL (0.0-1.1); MONO % 11 % (0-9); NEUT # 3.7 x10^3/uL (1.8-7.7); NEUT % 52 % (31-73); PLATELET COUNT 203 x10^3/uL (140-400); RED BLOOD COUNT 2.93 x10^6/uL (4.30-5.70); RED CELL DISTRIBUTION WIDTH 13.9 % (11.5-14.5); WHITE BLOOD COUNT 7.1 x10^3/uL (4.0-11.0)
--- NOTE | 2019-02-07 04:59 | EKG ---
[facility] [address] [place] [address] Test Date: 2019-02-06 Test Time: 06:37:18 Pat Name: NAV AMOR Department: Room: Gender: M Electronic Device Monitor: : 1960 Requested By: JOHNNA TOURE Order Number: [id number] Reading MD: Measurements Intervals [place] Rate: 69 P: 18 NM: 150 QRS: -27 QRSD: 96 T: 11 QT: 402 QTc: 432 Interpretive Statements SINUS RHYTHM VENTRICULAR PREMATURE COMPLEX(ES) ATRIAL PREMATURE COMPLEX(ES) LEFTWARD AXIS ABNORMAL ECG RI6.01 No previous ECG available for comparison
[2019-02-07 05:14] LABS: CALCIUM 8.2 mg/dL (8.5-10.1); GFR 92.2; POTASSIUM 3.9 mmol/L (3.5-5.1)
[2019-02-07] MEDS: LISINOPRIL 5 MG TABLET. PO SCH (09:48)
[2019-02-07] MEDS: ISOSORBIDE MONONITRATE ER 30 MG TAB.ER.24H PO SCH (09:48)
[2019-02-07] MEDS: GABAPENTIN 300 MG CAPSULE. PO SCH ×2 (09:48→21:30)
[2019-02-07] MEDS: EZETIMIBE 10 MG TABLET. PO SCH (09:48)
[2019-02-07] MEDS: METOPROLOL TART IMMED RELEASE 25 MG TABLET. PO SCH ×2 (09:49→21:00)
[2019-02-07] MEDS: FAMOTIDINE 20 MG/2 ML VIAL IVP SCH ×2 (09:49→21:30)
--- NOTE | 2019-02-07 10:11 | PDOC ---
G I PROGRESS NOTE Reason for Follow-up Hematochezia/acute blood loss anemia Subjective Tolerated light breakfast Physical Exam Lungs clear CV S1 S2 ABD +BS, soft, nontender Review of Relevant I have reviewed the following items kelle (where applicable) has been applied. Labs Laboratory Tests Test 02/06/19 06:00 02/06/19 06:10 02/06/19 12:13 02/06/19 14:10 Troponin I Quantitative < 0.017 ng/mL (0.000-0.055) White Blood Count 8.1 x10^3/uL (4.0-11.0) 10.0 x10^3/uL (4.0-11.0) Red Blood Count 3.84 x10^6/uL (4.30-5.70) 3.60 x10^6/uL (4.30-5.70) Hemoglobin 12.1 g/dL (13.0-17.5) 11.3 g/dL (13.0-17.5) Hematocrit 36.2 % (39.0-53.0) 34.0 % (39.0-53.0) Mean Corpuscular Volume 94 fL (79-100) 95 fL (79-100) Mean Corpuscular Hemoglobin 32 pg (25-35) 31 pg (25-35) Mean Corpuscular Hemoglobin Concent 34 g/dL (31-37) 33 g/dL (31-37) Red Cell Distribution Width 13.9 % (11.5-14.5) 13.8 % (11.5-14.5) Platelet Count 238 x10^3/uL (140-400) 265 x10^3/uL (140-400) Neutrophils (%) (Auto) 62 % (31-73) Lymphocytes (%) (Auto) 27 % (24-48) Monocytes (%) (Auto) 9 % (0-9) Eosinophils (%) (Auto) 2 % (0-3) Basophils (%) (Auto) 1 % (0-3) Neutrophils # (Auto) 5.0 x10^3/uL (1.8-7.7) Lymphocytes # (Auto) 2.1 x10^3/uL (1.0-4.8) Monocytes # (Auto) 0.7 x10^3/uL (0.0-1.1) Eosinophils # (Auto) 0.2 x10^3/uL (0.0-0.7) Basophils # (Auto) 0.0 x10^3/uL (0.0-0.2) Prothrombin Time 13.4 SEC (11.7-14.0) Prothromb Time International Ratio 1.1 (0.8-1.1) Activated Partial Thromboplast Time 30 SEC (24-38) Urine Collection Type Void Urine Color Yellow Urine Clarity Clear Urine pH 5.0 Urine Specific [place] 1.020 Urine Protein Negative mg/dL (NEG-TRACE) Urine Glucose (UA) Negative mg/dL (NEG) Urine Ketones (Stick) Negative mg/dL (NEG) Urine Blood Moderate (NEG) Urine Nitrite Negative (NEG) Urine Bilirubin Negative (NEG) Urine Urobilinogen Dipstick 0.2 mg/dL (0.2 mg/dL) Urine Leukocyte Esterase Negative (NEG) Urine RBC 0 /HPF (0-2) Urine WBC 0 /HPF (0-4) Urine Squamous Epithelial Cells Few /LPF Urine Bacteria 0 /HPF (0-FEW) Urine Mucus Mod /LPF Stool Occult Blood Positive (NEG) Sodium Level 141 mmol/L (136-145) Potassium Level 3.9 mmol/L (3.5-5.1) Chloride Level 106 mmol/L (98-107) Carbon Dioxide Level 26 mmol/L (21-32) Anion Gap 9 (6-14) Blood Urea Nitrogen 14 mg/dL (8-26) Creatinine 1.0 mg/dL (0.7-1.3) Estimated GFR (Cockcroft-Gault) 92.2 BUN/Creatinine Ratio 14 (6-20) Glucose Level 140 mg/dL (70-99) Calcium Level 8.5 mg/dL (8.5-10.1) Total Bilirubin 0.9 mg/dL (0.2-1.0) Direct Bilirubin 0.1 mg/dL (0.0-0.2) Aspartate Amino Transf (AST/SGOT) 13 U/L (15-37) Alanine Aminotransferase (ALT/SGPT) 16 U/L (16-63) Alkaline Phosphatase 70 U/L (46-116) Total Protein 7.2 g/dL (6.4-8.2) Albumin 3.6 g/dL (3.4-5.0) Albumin/Globulin Ratio 1.0 (1.0-1.7) Glucose (Fingerstick) 106 mg/dL (70-99) Test 02/06/19 17:07 02/06/19 20:39 02/06/19 22:15 02/07/19 03:30 Glucose (Fingerstick) 137 mg/dL (70-99) 164 mg/dL (70-99) White Blood Count 7.7 x10^3/uL (4.0-11.0) 7.1 x10^3/uL (4.0-11.0) Red Blood Count 2.96 x10^6/uL (4.30-5.70) 2.93 x10^6/uL (4.30-5.70) Hemoglobin 9.5 g/dL (13.0-17.5) 9.3 g/dL (13.0-17.5) Hematocrit 27.8 % (39.0-53.0) 27.5 % (39.0-53.0) Mean Corpuscular Volume 94 fL (79-100) 94 fL (79-100) Mean Corpuscular Hemoglobin 32 pg (25-35) 32 pg (25-35) Mean Corpuscular Hemoglobin Concent 34 g/dL (31-37) 34 g/dL (31-37) Red Cell Distribution Width 13.6 % (11.5-14.5) 13.9 % (11.5-14.5) Platelet Count 216 x10^3/uL (140-400) 203 x10^3/uL (140-400) Neutrophils (%) (Auto) 52 % (31-73) Lymphocytes (%) (Auto) 34 % (24-48) Monocytes (%) (Auto) 11 % (0-9) Eosinophils (%) (Auto) 3 % (0-3) Basophils (%) (Auto) 1 % (0-3) Neutrophils # (Auto) 3.7 x10^3/uL (1.8-7.7) Lymphocytes # (Auto) 2.4 x10^3/uL (1.0-4.8) Monocytes # (Auto) 0.8 x10^3/uL (0.0-1.1) Eosinophils # (Auto) 0.2 x10^3/uL (0.0-0.7) Basophils # (Auto) 0.0 x10^3/uL (0.0-0.2) Sodium Level 142 mmol/L (136-145) Potassium Level 3.9 mmol/L (3.5-5.1) Chloride Level 109 mmol/L (98-107) Carbon Dioxide Level 25 mmol/L (21-32) Anion Gap 8 (6-14) Blood Urea Nitrogen 14 mg/dL (8-26) Creatinine 1.0 mg/dL (0.7-1.3) Estimated GFR (Cockcroft-Gault) 92.2 Glucose Level 109 mg/dL (70-99) Calcium Level 8.2 mg/dL (8.5-10.1) Test 02/07/19 07:19 Glucose (Fingerstick) 91 mg/dL (70-99) Laboratory Tests Test 02/06/19 12:13 02/06/19 14:10 02/06/19 17:07 02/06/19 20:39 Glucose (Fingerstick) 106 mg/dL (70-99) 137 mg/dL (70-99) 164 mg/dL (70-99) White Blood Count 10.0 x10^3/uL (4.0-11.0) Red Blood Count 3.60 x10^6/uL (4.30-5.70) Hemoglobin 11.3 g/dL (13.0-17.5) Hematocrit 34.0 % (39.0-53.0) Mean Corpuscular Volume 95 fL (79-100) Mean Corpuscular Hemoglobin 31 pg (25-35) Mean Corpuscular Hemoglobin Concent 33 g/dL (31-37) Red Cell Distribution Width 13.8 % (11.5-14.5) Platelet Count 265 x10^3/uL (140-400) Test 02/06/19 22:15 02/07/19 03:30 02/07/19 07:19 White Blood Count 7.7 x10^3/uL (4.0-11.0) 7.1 x10^3/uL (4.0-11.0) Red Blood Count 2.96 x10^6/uL (4.30-5.70) 2.93 x10^6/uL (4.30-5.70) Hemoglobin 9.5 g/dL (13.0-17.5) 9.3 g/dL (13.0-17.5) Hematocrit 27.8 % (39.0-53.0) 27.5 % (39.0-53.0) Mean Corpuscular Volume 94 fL (79-100) 94 fL (79-100) Mean Corpuscular Hemoglobin 32 pg (25-35) 32 pg (25-35) Mean Corpuscular Hemoglobin Concent 34 g/dL (31-37) 34 g/dL (31-37) Red Cell Distribution Width 13.6 % (11.5-14.5) 13.9 % (11.5-14.5) Platelet Count 216 x10^3/uL (140-400) 203 x10^3/uL (140-400) Neutrophils (%) (Auto) 52 % (31-73) Lymphocytes (%) (Auto) 34 % (24-48) Monocytes (%) (Auto) 11 % (0-9) Eosinophils (%) (Auto) 3 % (0-3) Basophils (%) (Auto) 1 % (0-3) Neutrophils # (Auto) 3.7 x10^3/uL (1.8-7.7) Lymphocytes # (Auto) 2.4 x10^3/uL (1.0-4.8) Monocytes # (Auto) 0.8 x10^3/uL (0.0-1.1) Eosinophils # (Auto) 0.2 x10^3/uL (0.0-0.7) Basophils # (Auto) 0.0 x10^3/uL (0.0-0.2) Sodium Level 142 mmol/L (136-145) Potassium Level 3.9 mmol/L (3.5-5.1) Chloride Level 109 mmol/L (98-107) Carbon Dioxide Level 25 mmol/L (21-32) Anion Gap 8 (6-14) Blood Urea Nitrogen 14 mg/dL (8-26) Creatinine 1.0 mg/dL (0.7-1.3) Estimated GFR (Cockcroft-Gault) 92.2 Glucose Level 109 mg/dL (70-99) Calcium Level 8.2 mg/dL (8.5-10.1) Glucose (Fingerstick) 91 mg/dL (70-99) Medications Current Medications Ondansetron HCl (Zofran) 4 mg PRN Q8HRS PRN IV NAUSEA/VOMITING; Start 02/06/19 at 08:45; Stop 02/07/19 at 08:44; Status DC Morphine Sulfate (Morphine Sulfate) 2 mg PRN Q2HR PRN IV PAIN; Start 02/06/19 at 08:45; Stop 02/07/19 at 08:44; Status DC Famotidine (Pepcid Vial) 20 mg BID IVP Last administered on 02/07/19at 09:54; Start 02/06/19 at 11:00 Sodium Chloride (Normal Saline Flush) 3 ml QSHIFT PRN IV AFTER MEDS AND BLOOD DRAWS; Start 02/06/19 at 12:45 Sodium Chloride 1,000 ml @ 100 mls/hr Q10H IV Last administered on 02/07/19at 09:54; Start 02/06/19 at 12:32 Acetaminophen (Tylenol) 650 mg PRN Q4HRS PRN PO TEMP OVER 100.4F OR MILD PAIN; Start 02/06/19 at 12:45 Clonidine HCl (Catapres) 0.1 mg PRN Q6HRS PRN PO SBP>160 OR DBP>90; Start 02/06/19 at 12:45 Albuterol Sulfate (Ventolin Neb Soln) 2.5 mg PRN Q4HRS PRN NEB SHORTNESS OF BREATH; Start 02/06/19 at 12:45 Guaifenesin (Robitussin) 200 mg PRN Q4HRS PRN PO COUGH; Start 02/06/19 at 12:45 Lorazepam (Ativan) 0.5 mg PRN Q4HRS PRN PO ANXIETY / AGITATION; Start 02/06/19 at 12:45 EZETIMIBE (Zetia) 10 mg DAILY PO Last administered on 02/07/19at 09:54; Start 02/07/19 at 09:00 Gabapentin (Neurontin) 300 mg BID PO Last administered on 02/07/19at 09:54; Start 02/06/19 at 22:00 Lisinopril (Prinivil) 5 mg DAILY PO Last administered on 02/07/19at 09:54; Start 02/07/19 at 09:00 Metoprolol Tartrate (Lopressor) 12.5 mg BID PO Last administered on 02/07/19at 09:54; Start 02/06/19 at 22:00 Nitroglycerin (Nitrostat) 0.4 mg PRN Q5MIN PRN SL CHEST PAIN; Start 02/06/19 at 21:15 Isosorbide Mononitrate (Imdur) 60 mg DAILY PO Last administered on 02/07/19at 09:54; Start 02/07/19 at 09:00 Active Scripts Active Brilinta (Ticagrelor) 90 Mg Tablet 90 Mg PO BID Nitrostat (Nitroglycerin) 0.4 Mg Tab.subl 0.4 Mg SL PRN Q5MIN PRN Reported Zetia (Ezetimibe) 10 Mg Tablet 10 Mg PO DAILY Gabapentin (Gabapentin) 300 Mg Capsule 300 Mg PO BID Isosorbide Mononitrate Er (Isosorbide Mononitrate) 60 Mg Tab.er.24h 60 Mg PO DAILY Lisinopril 5 Mg Tablet 5 Mg PO DAILY Aspir 81 (Aspirin) 81 Mg Tablet.dr 1 Tab PO DAILY LAST DOSE GIVEN: DATE: 2014 TIME: 9:00 am NEXT DOSE DUE: DATE: 2014 TIME: 9:00 am Metoprolol Tartrate 25 Mg Tablet 0.5 Tab PO BID LAST DOSE GIVEN: DATE: 2014 TIME: 9:00 am NEXT DOSE DUE: DATE: 2014 TIME: 9:00 pm Vitals/I & O Vital Sign - Last 24 Hours 02/06/19 02/06/19 02/06/19 02/06/19 11:00 12:15 15:00 19:00 Temp 97.7 97.8 98.8 97.7 97.8 98.8 Pulse 69 99 93 Resp 16 18 17 B/P (MAP) 121/68 (85) 115/70 (85) 138/71 (93) Pulse Ox 100 99 99 O2 Delivery Room Air Room Air Room Air Room Air 02/06/19 02/06/19 02/06/19 02/07/19 20:00 21:56 22:46 02:50 Temp 97.8 98.1 97.8 98.1 Pulse 93 71 70 Resp 18 17 B/P (MAP) 138/71 122/69 (86) 122/71 (88) Pulse Ox 99 99 O2 Delivery Room Air Room Air Room Air 02/07/19 02/07/19 02/07/19 02/07/19 07:00 09:54 09:54 09:54 Temp 98.4 98.4 Pulse 87 87 87 87 Resp 17 B/P (MAP) 116/69 (85) 116/69 116/69 116/69 Pulse Ox 100 O2 Delivery Room Air Intake and Output 02/06/19 02/06/19 02/07/19 14:59 22:59 06:59 Intake Total 200 ml Output Total 2 ml Balance -2 ml 200 ml Problem List Problems Medical Problems: (1) GI bleed Status: Acute Assessment Hematochezia- with acute blood loss anemia, most likely secondary to diverticular source Plan advance diet serial cbcs if no further bleeding, then o/p colonoscopy CRISS ALAS MD Feb 07, 2019 10:11
--- NOTE | 2019-02-07 11:29 | PDOC ---
PROGRESS NOTES Chief Complaint Chief Complaint Hematochezia- with acute blood loss anemia, most likely secondary to diverticular source Plan advance diet serial cbcs if no further bleeding, then o/p colonoscopy CAD with stents on brilinta and asa 81 History of Present Illness History of Present Illness NO more BRBPR last 3 BMS, just gas Hgb trending down from 12 on admit to 9.3 now ON serial H/H q6 VS good Started on diet today PLAN: Current IVF to consume I did not change the serial HH POssible home tmr if Hh stabilizes and no more re bleeding OP c scope Dw him and FULL CODE WAs on Brilinta and ASA for 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 Vitals Vitals Vital Signs Date Time Temp Pulse Resp B/P (MAP) Pulse Ox O2 Delivery O2 Flow Rate FiO2 02/07/19 09:54 87 116/69 02/07/19 08:00 Room Air 02/07/19 07:00 98.4 17 100 98.4 Physical Exam General: Alert, Oriented X3, No acute distress Heart: Regular rate, Normal S1, Normal S2 Lungs: Clear Abdomen: Normal bowel sounds Extremities: No clubbing, No cyanosis, No edema Skin: No rashes, No breakdown Labs LABS Laboratory Tests Test 02/06/19 12:13 02/06/19 14:10 02/06/19 17:07 02/06/19 20:39 Glucose (Fingerstick) 106 mg/dL (70-99) 137 mg/dL (70-99) 164 mg/dL (70-99) White Blood Count 10.0 x10^3/uL (4.0-11.0) Red Blood Count 3.60 x10^6/uL (4.30-5.70) Hemoglobin 11.3 g/dL (13.0-17.5) Hematocrit 34.0 % (39.0-53.0) Mean Corpuscular Volume 95 fL (79-100) Mean Corpuscular Hemoglobin 31 pg (25-35) Mean Corpuscular Hemoglobin Concent 33 g/dL (31-37) Red Cell Distribution Width 13.8 % (11.5-14.5) Platelet Count 265 x10^3/uL (140-400) Test 02/06/19 22:15 02/07/19 03:30 02/07/19 07:19 White Blood Count 7.7 x10^3/uL (4.0-11.0) 7.1 x10^3/uL (4.0-11.0) Red Blood Count 2.96 x10^6/uL (4.30-5.70) 2.93 x10^6/uL (4.30-5.70) Hemoglobin 9.5 g/dL (13.0-17.5) 9.3 g/dL (13.0-17.5) Hematocrit 27.8 % (39.0-53.0) 27.5 % (39.0-53.0) Mean Corpuscular Volume 94 fL (79-100) 94 fL (79-100) Mean Corpuscular Hemoglobin 32 pg (25-35) 32 pg (25-35) Mean Corpuscular Hemoglobin Concent 34 g/dL (31-37) 34 g/dL (31-37) Red Cell Distribution Width 13.6 % (11.5-14.5) 13.9 % (11.5-14.5) Platelet Count 216 x10^3/uL (140-400) 203 x10^3/uL (140-400) Neutrophils (%) (Auto) 52 % (31-73) Lymphocytes (%) (Auto) 34 % (24-48) Monocytes (%) (Auto) 11 % (0-9) Eosinophils (%) (Auto) 3 % (0-3) Basophils (%) (Auto) 1 % (0-3) Neutrophils # (Auto) 3.7 x10^3/uL (1.8-7.7) Lymphocytes # (Auto) 2.4 x10^3/uL (1.0-4.8) Monocytes # (Auto) 0.8 x10^3/uL (0.0-1.1) Eosinophils # (Auto) 0.2 x10^3/uL (0.0-0.7) Basophils # (Auto) 0.0 x10^3/uL (0.0-0.2) Sodium Level 142 mmol/L (136-145) Potassium Level 3.9 mmol/L (3.5-5.1) Chloride Level 109 mmol/L (98-107) Carbon Dioxide Level 25 mmol/L (21-32) Anion Gap 8 (6-14) Blood Urea Nitrogen 14 mg/dL (8-26) Creatinine 1.0 mg/dL (0.7-1.3) Estimated GFR (Cockcroft-Gault) 92.2 Glucose Level 109 mg/dL (70-99) Calcium Level 8.2 mg/dL (8.5-10.1) Glucose (Fingerstick) 91 mg/dL (70-99) Review of Systems Review of Systems no cp, soa, precynopal sxs, no abd pain, nv,d Assessment and Plan Assessmemt and Plan Problems Medical Problems: (1) GI bleed Status: Acute Comment Review of Relevant I have reviewed the following items kelle (where applicable) has been applied. Labs Laboratory Tests Test 02/06/19 06:00 02/06/19 06:10 02/06/19 12:13 02/06/19 14:10 Troponin I Quantitative < 0.017 ng/mL (0.000-0.055) White Blood Count 8.1 x10^3/uL (4.0-11.0) 10.0 x10^3/uL (4.0-11.0) Red Blood Count 3.84 x10^6/uL (4.30-5.70) 3.60 x10^6/uL (4.30-5.70) Hemoglobin 12.1 g/dL (13.0-17.5) 11.3 g/dL (13.0-17.5) Hematocrit 36.2 % (39.0-53.0) 34.0 % (39.0-53.0) Mean Corpuscular Volume 94 fL (79-100) 95 fL (79-100) Mean Corpuscular Hemoglobin 32 pg (25-35) 31 pg (25-35) Mean Corpuscular Hemoglobin Concent 34 g/dL (31-37) 33 g/dL (31-37) Red Cell Distribution Width 13.9 % (11.5-14.5) 13.8 % (11.5-14.5) Platelet Count 238 x10^3/uL (140-400) 265 x10^3/uL (140-400) Neutrophils (%) (Auto) 62 % (31-73) Lymphocytes (%) (Auto) 27 % (24-48) Monocytes (%) (Auto) 9 % (0-9) Eosinophils (%) (Auto) 2 % (0-3) Basophils (%) (Auto) 1 % (0-3) Neutrophils # (Auto) 5.0 x10^3/uL (1.8-7.7) Lymphocytes # (Auto) 2.1 x10^3/uL (1.0-4.8) Monocytes # (Auto) 0.7 x10^3/uL (0.0-1.1) Eosinophils # (Auto) 0.2 x10^3/uL (0.0-0.7) Basophils # (Auto) 0.0 x10^3/uL (0.0-0.2) Prothrombin Time 13.4 SEC (11.7-14.0) Prothromb Time International Ratio 1.1 (0.8-1.1) Activated Partial Thromboplast Time 30 SEC (24-38) Urine Collection Type Void Urine Color Yellow Urine Clarity Clear Urine pH 5.0 Urine Specific [place] 1.020 Urine Protein Negative mg/dL (NEG-TRACE) Urine Glucose (UA) Negative mg/dL (NEG) Urine Ketones (Stick) Negative mg/dL (NEG) Urine Blood Moderate (NEG) Urine Nitrite Negative (NEG) Urine Bilirubin Negative (NEG) Urine Urobilinogen Dipstick 0.2 mg/dL (0.2 mg/dL) Urine Leukocyte Esterase Negative (NEG) Urine RBC 0 /HPF (0-2) Urine WBC 0 /HPF (0-4) Urine Squamous Epithelial Cells Few /LPF Urine Bacteria 0 /HPF (0-FEW) Urine Mucus Mod /LPF Stool Occult Blood Positive (NEG) Sodium Level 141 mmol/L (136-145) Potassium Level 3.9 mmol/L (3.5-5.1) Chloride Level 106 mmol/L (98-107) Carbon Dioxide Level 26 mmol/L (21-32) Anion Gap 9 (6-14) Blood Urea Nitrogen 14 mg/dL (8-26) Creatinine 1.0 mg/dL (0.7-1.3) Estimated GFR (Cockcroft-Gault) 92.2 BUN/Creatinine Ratio 14 (6-20) Glucose Level 140 mg/dL (70-99) Calcium Level 8.5 mg/dL (8.5-10.1) Total Bilirubin 0.9 mg/dL (0.2-1.0) Direct Bilirubin 0.1 mg/dL (0.0-0.2) Aspartate Amino Transf (AST/SGOT) 13 U/L (15-37) Alanine Aminotransferase (ALT/SGPT) 16 U/L (16-63) Alkaline Phosphatase 70 U/L (46-116) Total Protein 7.2 g/dL (6.4-8.2) Albumin 3.6 g/dL (3.4-5.0) Albumin/Globulin Ratio 1.0 (1.0-1.7) Glucose (Fingerstick) 106 mg/dL (70-99) Test 02/06/19 17:07 02/06/19 20:39 02/06/19 22:15 02/07/19 03:30 Glucose (Fingerstick) 137 mg/dL (70-99) 164 mg/dL (70-99) White Blood Count 7.7 x10^3/uL (4.0-11.0) 7.1 x10^3/uL (4.0-11.0) Red Blood Count 2.96 x10^6/uL (4.30-5.70) 2.93 x10^6/uL (4.30-5.70) Hemoglobin 9.5 g/dL (13.0-17.5) 9.3 g/dL (13.0-17.5) Hematocrit 27.8 % (39.0-53.0) 27.5 % (39.0-53.0) Mean Corpuscular Volume 94 fL (79-100) 94 fL (79-100) Mean Corpuscular Hemoglobin 32 pg (25-35) 32 pg (25-35) Mean Corpuscular Hemoglobin Concent 34 g/dL (31-37) 34 g/dL (31-37) Red Cell Distribution Width 13.6 % (11.5-14.5) 13.9 % (11.5-14.5) Platelet Count 216 x10^3/uL (140-400) 203 x10^3/uL (140-400) Neutrophils (%) (Auto) 52 % (31-73) Lymphocytes (%) (Auto) 34 % (24-48) Monocytes (%) (Auto) 11 % (0-9) Eosinophils (%) (Auto) 3 % (0-3) Basophils (%) (Auto) 1 % (0-3) Neutrophils # (Auto) 3.7 x10^3/uL (1.8-7.7) Lymphocytes # (Auto) 2.4 x10^3/uL (1.0-4.8) Monocytes # (Auto) 0.8 x10^3/uL (0.0-1.1) Eosinophils # (Auto) 0.2 x10^3/uL (0.0-0.7) Basophils # (Auto) 0.0 x10^3/uL (0.0-0.2) Sodium Level 142 mmol/L (136-145) Potassium Level 3.9 mmol/L (3.5-5.1) Chloride Level 109 mmol/L (98-107) Carbon Dioxide Level 25 mmol/L (21-32) Anion Gap 8 (6-14) Blood Urea Nitrogen 14 mg/dL (8-26) Creatinine 1.0 mg/dL (0.7-1.3) Estimated GFR (Cockcroft-Gault) 92.2 Glucose Level 109 mg/dL (70-99) Calcium Level 8.2 mg/dL (8.5-10.1) Test 02/07/19 07:19 Glucose (Fingerstick) 91 mg/dL (70-99) Laboratory Tests Test 02/06/19 12:13 02/06/19 14:10 02/06/19 17:07 02/06/19 20:39 Glucose (Fingerstick) 106 mg/dL (70-99) 137 mg/dL (70-99) 164 mg/dL (70-99) White Blood Count 10.0 x10^3/uL (4.0-11.0) Red Blood Count 3.60 x10^6/uL (4.30-5.70) Hemoglobin 11.3 g/dL (13.0-17.5) Hematocrit 34.0 % (39.0-53.0) Mean Corpuscular Volume 95 fL (79-100) Mean Corpuscular Hemoglobin 31 pg (25-35) Mean Corpuscular Hemoglobin Concent 33 g/dL (31-37) Red Cell Distribution Width 13.8 % (11.5-14.5) Platelet Count 265 x10^3/uL (140-400) Test 02/06/19 22:15 02/07/19 03:30 02/07/19 07:19 White Blood Count 7.7 x10^3/uL (4.0-11.0) 7.1 x10^3/uL (4.0-11.0) Red Blood Count 2.96 x10^6/uL (4.30-5.70) 2.93 x10^6/uL (4.30-5.70) Hemoglobin 9.5 g/dL (13.0-17.5) 9.3 g/dL (13.0-17.5) Hematocrit 27.8 % (39.0-53.0) 27.5 % (39.0-53.0) Mean Corpuscular Volume 94 fL (79-100) 94 fL (79-100) Mean Corpuscular Hemoglobin 32 pg (25-35) 32 pg (25-35) Mean Corpuscular Hemoglobin Concent 34 g/dL (31-37) 34 g/dL (31-37) Red Cell Distribution Width 13.6 % (11.5-14.5) 13.9 % (11.5-14.5) Platelet Count 216 x10^3/uL (140-400) 203 x10^3/uL (140-400) Neutrophils (%) (Auto) 52 % (31-73) Lymphocytes (%) (Auto) 34 % (24-48) Monocytes (%) (Auto) 11 % (0-9) Eosinophils (%) (Auto) 3 % (0-3) Basophils (%) (Auto) 1 % (0-3) Neutrophils # (Auto) 3.7 x10^3/uL (1.8-7.7) Lymphocytes # (Auto) 2.4 x10^3/uL (1.0-4.8) Monocytes # (Auto) 0.8 x10^3/uL (0.0-1.1) Eosinophils # (Auto) 0.2 x10^3/uL (0.0-0.7) Basophils # (Auto) 0.0 x10^3/uL (0.0-0.2) Sodium Level 142 mmol/L (136-145) Potassium Level 3.9 mmol/L (3.5-5.1) Chloride Level 109 mmol/L (98-107) Carbon Dioxide Level 25 mmol/L (21-32) Anion Gap 8 (6-14) Blood Urea Nitrogen 14 mg/dL (8-26) Creatinine 1.0 mg/dL (0.7-1.3) Estimated GFR (Cockcroft-Gault) 92.2 Glucose Level 109 mg/dL (70-99) Calcium Level 8.2 mg/dL (8.5-10.1) Glucose (Fingerstick) 91 mg/dL (70-99) Medications Current Medications Ondansetron HCl (Zofran) 4 mg PRN Q8HRS PRN IV NAUSEA/VOMITING; Start 02/06/19 at 08:45; Stop 02/07/19 at 08:44; Status DC Morphine Sulfate (Morphine Sulfate) 2 mg PRN Q2HR PRN IV PAIN; Start 02/06/19 at 08:45; Stop 02/07/19 at 08:44; Status DC Famotidine (Pepcid Vial) 20 mg BID IVP Last administered on 02/07/19at 09:54; Start 02/06/19 at 11:00 Sodium Chloride (Normal Saline Flush) 3 ml QSHIFT PRN IV AFTER MEDS AND BLOOD DRAWS; Start 02/06/19 at 12:45 Sodium Chloride 1,000 ml @ 100 mls/hr Q10H IV Last administered on 02/07/19at 09:54; Start 02/06/19 at 12:32; Stop 02/07/19 at 11:18; Status DC Acetaminophen (Tylenol) 650 mg PRN Q4HRS PRN PO TEMP OVER 100.4F OR MILD PAIN; Start 02/06/19 at 12:45 Clonidine HCl (Catapres) 0.1 mg PRN Q6HRS PRN PO SBP>160 OR DBP>90; Start 02/06/19 at 12:45 Albuterol Sulfate (Ventolin Neb Soln) 2.5 mg PRN Q4HRS PRN NEB SHORTNESS OF BREATH; Start 02/06/19 at 12:45 Guaifenesin (Robitussin) 200 mg PRN Q4HRS PRN PO COUGH; Start 02/06/19 at 12:45 Lorazepam (Ativan) 0.5 mg PRN Q4HRS PRN PO ANXIETY / AGITATION; Start 02/06/19 at 12:45 EZETIMIBE (Zetia) 10 mg DAILY PO Last administered on 02/07/19at 09:54; Start 02/07/19 at 09:00 Gabapentin (Neurontin) 300 mg BID PO Last administered on 02/07/19at 09:54; Start 02/06/19 at 22:00 Lisinopril (Prinivil) 5 mg DAILY PO Last administered on 02/07/19at 09:54; Start 02/07/19 at 09:00 Metoprolol Tartrate (Lopressor) 12.5 mg BID PO Last administered on 02/07/19at 09:54; Start 02/06/19 at 22:00 Nitroglycerin (Nitrostat) 0.4 mg PRN Q5MIN PRN SL CHEST PAIN; Start 02/06/19 at 21:15 Isosorbide Mononitrate (Imdur) 60 mg DAILY PO Last administered on 02/07/19at 09:54; Start 02/07/19 at 09:00 Active Scripts Active Brilinta (Ticagrelor) 90 Mg Tablet 90 Mg PO BID Nitrostat (Nitroglycerin) 0.4 Mg Tab.subl 0.4 Mg SL PRN Q5MIN PRN Reported Zetia (Ezetimibe) 10 Mg Tablet 10 Mg PO DAILY Gabapentin (Gabapentin) 300 Mg Capsule 300 Mg PO BID Isosorbide Mononitrate Er (Isosorbide Mononitrate) 60 Mg Tab.er.24h 60 Mg PO DAILY Lisinopril 5 Mg Tablet 5 Mg PO DAILY Aspir 81 (Aspirin) 81 Mg Tablet.dr 1 Tab PO DAILY LAST DOSE GIVEN: DATE: 2014 TIME: 9:00 am NEXT DOSE DUE: DATE: 2014 TIME: 9:00 am Metoprolol Tartrate 25 Mg Tablet 0.5 Tab PO BID LAST DOSE GIVEN: DATE: 2014 TIME: 9:00 am NEXT DOSE DUE: DATE: 2014 TIME: 9:00 pm Vitals/I & O Vital Sign - Last 24 Hours 02/06/19 02/06/19 02/06/19 02/06/19 12:15 15:00 19:00 20:00 Temp 97.8 98.8 97.8 98.8 Pulse 99 93 Resp 18 17 B/P (MAP) 115/70 (85) 138/71 (93) Pulse Ox 99 99 O2 Delivery Room Air Room Air Room Air Room Air 02/06/19 02/06/19 02/07/19 02/07/19 21:56 22:46 02:50 07:00 Temp 97.8 98.1 98.4 97.8 98.1 98.4 Pulse 93 71 70 87 Resp 18 17 17 B/P (MAP) 138/71 122/69 (86) 122/71 (88) 116/69 (85) Pulse Ox 99 99 100 O2 Delivery Room Air Room Air Room Air 02/07/19 02/07/19 02/07/19 02/07/19 08:00 09:54 09:54 09:54 Pulse 87 87 87 B/P (MAP) 116/69 116/69 116/69 O2 Delivery Room Air Intake and Output 02/06/19 02/06/19 02/07/19 15:00 23:00 07:00 Intake Total 200 ml Output Total 2 ml Balance -2 ml 200 ml NINA HORTON MD Feb 07, 2019 11:29
--- NOTE | 2019-02-07 13:00 | NUR ---
Lab Value: Hgb 7.9 at 1200, down from 9.3 in the morning. Notified Dr. Chaney who ordered 1UPRBC. Addendum: 02/07/19 at 1731 by ZAK SINGER RN Notified Dr. Ziegler of drop in Hgb, no new orders. Dr. Moreno order for pt to be NPO at midnight pending potential procedure,
[2019-02-07 13:59] LABS: HEMATOCRIT 23.3 % (39.0-53.0); HEMOGLOBIN 7.9 g/dL (13.0-17.5); RED BLOOD COUNT 2.47 x10^6/uL (4.30-5.70); RED CELL DISTRIBUTION WIDTH 13.5 % (11.5-14.5)
[2019-02-07 22:03] LABS: HEMATOCRIT 27.3 % (39.0-53.0); HEMOGLOBIN 9.3 g/dL (13.0-17.5); RED BLOOD COUNT 2.9 x10^6/uL (4.30-5.70); RED CELL DISTRIBUTION WIDTH 13.7 % (11.5-14.5); WHITE BLOOD COUNT 9.2 x10^3/uL (4.0-11.0)
[2019-02-08 03:00] VITALS: BP 110/65
[2019-02-08 07:00] VITALS: BP 128/67
[2019-02-08 08:54] LABS: HEMATOCRIT 26.5 % (39.0-53.0); RED BLOOD COUNT 2.84 x10^6/uL (4.30-5.70); RED CELL DISTRIBUTION WIDTH 13.9 % (11.5-14.5); WHITE BLOOD COUNT 6.9 x10^3/uL (4.0-11.0)
[2019-02-08 10:56] VITALS: BP 112/66
[2019-02-08] MEDS: FAMOTIDINE 20 MG/2 ML VIAL IVP SCH (11:03)
--- NOTE | 2019-02-08 11:11 | PDOC ---
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 Vitals Vital Signs Date Time Temp Pulse Resp B/P (MAP) Pulse Ox O2 Delivery O2 Flow Rate FiO2 02/08/19 10:56 98.7 73 18 112/66 (81) 99 Room Air 98.7 Physical Exam General: Alert, Oriented X3, No acute distress Heart: Regular rate, Normal S1, Normal S2 Lungs: Clear Abdomen: Normal bowel sounds Extremities: No clubbing, No cyanosis, No edema Skin: No rashes, No breakdown Labs LABS Laboratory Tests Test 02/07/19 11:30 02/07/19 13:50 02/07/19 16:22 02/07/19 20:35 Glucose (Fingerstick) 152 mg/dL (70-99) 140 mg/dL (70-99) 125 mg/dL (70-99) White Blood Count 7.0 x10^3/uL (4.0-11.0) Red Blood Count 2.47 x10^6/uL (4.30-5.70) Hemoglobin 7.9 g/dL (13.0-17.5) Hematocrit 23.3 % (39.0-53.0) Mean Corpuscular Volume 94 fL (79-100) Mean Corpuscular Hemoglobin 32 pg (25-35) Mean Corpuscular Hemoglobin Concent 34 g/dL (31-37) Red Cell Distribution Width 13.5 % (11.5-14.5) Platelet Count 195 x10^3/uL (140-400) Test 02/07/19 21:55 02/08/19 07:25 02/08/19 07:35 02/08/19 10:54 White Blood Count 9.2 x10^3/uL (4.0-11.0) 6.9 x10^3/uL (4.0-11.0) Red Blood Count 2.90 x10^6/uL (4.30-5.70) 2.84 x10^6/uL (4.30-5.70) Hemoglobin 9.3 g/dL (13.0-17.5) 9.0 g/dL (13.0-17.5) Hematocrit 27.3 % (39.0-53.0) 26.5 % (39.0-53.0) Mean Corpuscular Volume 94 fL (79-100) 93 fL (79-100) Mean Corpuscular Hemoglobin 32 pg (25-35) 32 pg (25-35) Mean Corpuscular Hemoglobin Concent 34 g/dL (31-37) 34 g/dL (31-37) Red Cell Distribution Width 13.7 % (11.5-14.5) 13.9 % (11.5-14.5) Platelet Count 220 x10^3/uL (140-400) 197 x10^3/uL (140-400) Glucose (Fingerstick) 111 mg/dL (70-99) 95 mg/dL (70-99) Review of Systems Review of Systems A 14 point ROS was completed with the following noted as positive: Other systems reviewed and negative. \CONSTITUTIONAL: No fever or chills EYES: No recent changes SKIN: No rash or itching CARDIOVASCULAR: No chest pain, syncope, palpitations, or edema RESPIRATORY: No SOB or cough GASTROINTESTINAL: No nausea, vomiting or abdominal pain NEUROLOGICAL: No headaches or weakness ENDOCRINE: No cold or heat intolerance GENITOURINARY: No urgency or frequency of urination MUSCULOSKELETAL: No back pain or joint pain LYMPHATICS: No enlarged lymph nodes PSYCHIATRIC: No anxiety or depression Assessment and Plan Assessmemt and Plan Problems Medical Problems: (1) GI bleed Status: Acute Comment Review of Relevant I have reviewed the following items kelle (where applicable) has been applied. Labs Laboratory Tests Test 02/06/19 12:13 02/06/19 14:10 02/06/19 17:07 02/06/19 20:39 Glucose (Fingerstick) 106 mg/dL (70-99) 137 mg/dL (70-99) 164 mg/dL (70-99) White Blood Count 10.0 x10^3/uL (4.0-11.0) Red Blood Count 3.60 x10^6/uL (4.30-5.70) Hemoglobin 11.3 g/dL (13.0-17.5) Hematocrit 34.0 % (39.0-53.0) Mean Corpuscular Volume 95 fL (79-100) Mean Corpuscular Hemoglobin 31 pg (25-35) Mean Corpuscular Hemoglobin Concent 33 g/dL (31-37) Red Cell Distribution Width 13.8 % (11.5-14.5) Platelet Count 265 x10^3/uL (140-400) Test 02/06/19 22:15 02/07/19 03:30 02/07/19 07:19 02/07/19 11:30 White Blood Count 7.7 x10^3/uL (4.0-11.0) 7.1 x10^3/uL (4.0-11.0) Red Blood Count 2.96 x10^6/uL (4.30-5.70) 2.93 x10^6/uL (4.30-5.70) Hemoglobin 9.5 g/dL (13.0-17.5) 9.3 g/dL (13.0-17.5) Hematocrit 27.8 % (39.0-53.0) 27.5 % (39.0-53.0) Mean Corpuscular Volume 94 fL (79-100) 94 fL (79-100) Mean Corpuscular Hemoglobin 32 pg (25-35) 32 pg (25-35) Mean Corpuscular Hemoglobin Concent 34 g/dL (31-37) 34 g/dL (31-37) Red Cell Distribution Width 13.6 % (11.5-14.5) 13.9 % (11.5-14.5) Platelet Count 216 x10^3/uL (140-400) 203 x10^3/uL (140-400) Neutrophils (%) (Auto) 52 % (31-73) Lymphocytes (%) (Auto) 34 % (24-48) Monocytes (%) (Auto) 11 % (0-9) Eosinophils (%) (Auto) 3 % (0-3) Basophils (%) (Auto) 1 % (0-3) Neutrophils # (Auto) 3.7 x10^3/uL (1.8-7.7) Lymphocytes # (Auto) 2.4 x10^3/uL (1.0-4.8) Monocytes # (Auto) 0.8 x10^3/uL (0.0-1.1) Eosinophils # (Auto) 0.2 x10^3/uL (0.0-0.7) Basophils # (Auto) 0.0 x10^3/uL (0.0-0.2) Sodium Level 142 mmol/L (136-145) Potassium Level 3.9 mmol/L (3.5-5.1) Chloride Level 109 mmol/L (98-107) Carbon Dioxide Level 25 mmol/L (21-32) Anion Gap 8 (6-14) Blood Urea Nitrogen 14 mg/dL (8-26) Creatinine 1.0 mg/dL (0.7-1.3) Estimated GFR (Cockcroft-Gault) 92.2 Glucose Level 109 mg/dL (70-99) Calcium Level 8.2 mg/dL (8.5-10.1) Glucose (Fingerstick) 91 mg/dL (70-99) 152 mg/dL (70-99) Test 02/07/19 13:50 02/07/19 16:22 02/07/19 20:35 02/07/19 21:55 White Blood Count 7.0 x10^3/uL (4.0-11.0) 9.2 x10^3/uL (4.0-11.0) Red Blood Count 2.47 x10^6/uL (4.30-5.70) 2.90 x10^6/uL (4.30-5.70) Hemoglobin 7.9 g/dL (13.0-17.5) 9.3 g/dL (13.0-17.5) Hematocrit 23.3 % (39.0-53.0) 27.3 % (39.0-53.0) Mean Corpuscular Volume 94 fL (79-100) 94 fL (79-100) Mean Corpuscular Hemoglobin 32 pg (25-35) 32 pg (25-35) Mean Corpuscular Hemoglobin Concent 34 g/dL (31-37) 34 g/dL (31-37) Red Cell Distribution Width 13.5 % (11.5-14.5) 13.7 % (11.5-14.5) Platelet Count 195 x10^3/uL (140-400) 220 x10^3/uL (140-400) Glucose (Fingerstick) 140 mg/dL (70-99) 125 mg/dL (70-99) Test 02/08/19 07:25 02/08/19 07:35 02/08/19 10:54 Glucose (Fingerstick) 111 mg/dL (70-99) 95 mg/dL (70-99) White Blood Count 6.9 x10^3/uL (4.0-11.0) Red Blood Count 2.84 x10^6/uL (4.30-5.70) Hemoglobin 9.0 g/dL (13.0-17.5) Hematocrit 26.5 % (39.0-53.0) Mean Corpuscular Volume 93 fL (79-100) Mean Corpuscular Hemoglobin 32 pg (25-35) Mean Corpuscular Hemoglobin Concent 34 g/dL (31-37) Red Cell Distribution Width 13.9 % (11.5-14.5) Platelet Count 197 x10^3/uL (140-400) Laboratory Tests Test 02/07/19 11:30 02/07/19 13:50 02/07/19 16:22 02/07/19 20:35 Glucose (Fingerstick) 152 mg/dL (70-99) 140 mg/dL (70-99) 125 mg/dL (70-99) White Blood Count 7.0 x10^3/uL (4.0-11.0) Red Blood Count 2.47 x10^6/uL (4.30-5.70) Hemoglobin 7.9 g/dL (13.0-17.5) Hematocrit 23.3 % (39.0-53.0) Mean Corpuscular Volume 94 fL (79-100) Mean Corpuscular Hemoglobin 32 pg (25-35) Mean Corpuscular Hemoglobin Concent 34 g/dL (31-37) Red Cell Distribution Width 13.5 % (11.5-14.5) Platelet Count 195 x10^3/uL (140-400) Test 02/07/19 21:55 02/08/19 07:25 02/08/19 07:35 02/08/19 10:54 White Blood Count 9.2 x10^3/uL (4.0-11.0) 6.9 x10^3/uL (4.0-11.0) Red Blood Count 2.90 x10^6/uL (4.30-5.70) 2.84 x10^6/uL (4.30-5.70) Hemoglobin 9.3 g/dL (13.0-17.5) 9.0 g/dL (13.0-17.5) Hematocrit 27.3 % (39.0-53.0) 26.5 % (39.0-53.0) Mean Corpuscular Volume 94 fL (79-100) 93 fL (79-100) Mean Corpuscular Hemoglobin 32 pg (25-35) 32 pg (25-35) Mean Corpuscular Hemoglobin Concent 34 g/dL (31-37) 34 g/dL (31-37) Red Cell Distribution Width 13.7 % (11.5-14.5) 13.9 % (11.5-14.5) Platelet Count 220 x10^3/uL (140-400) 197 x10^3/uL (140-400) Glucose (Fingerstick) 111 mg/dL (70-99) 95 mg/dL (70-99) Medications Current Medications Ondansetron HCl (Zofran) 4 mg PRN Q8HRS PRN IV NAUSEA/VOMITING; Start 02/06/19 at 08:45; Stop 02/07/19 at 08:44; Status DC Morphine Sulfate (Morphine Sulfate) 2 mg PRN Q2HR PRN IV PAIN; Start 02/06/19 at 08:45; Stop 02/07/19 at 08:44; Status DC Famotidine (Pepcid Vial) 20 mg BID IVP Last administered on 02/08/19at 11:05; Start 02/06/19 at 11:00 Sodium Chloride (Normal Saline Flush) 3 ml QSHIFT PRN IV AFTER MEDS AND BLOOD DRAWS; Start 02/06/19 at 12:45 Sodium Chloride 1,000 ml @ 100 mls/hr Q10H IV Last administered on 02/07/19at 09:54; Start 02/06/19 at 12:32; Stop 02/07/19 at 11:18; Status DC Acetaminophen (Tylenol) 650 mg PRN Q4HRS PRN PO TEMP OVER 100.4F OR MILD PAIN; Start 02/06/19 at 12:45 Clonidine HCl (Catapres) 0.1 mg PRN Q6HRS PRN PO SBP>160 OR DBP>90; Start 02/06/19 at 12:45 Albuterol Sulfate (Ventolin Neb Soln) 2.5 mg PRN Q4HRS PRN NEB SHORTNESS OF BREATH; Start 02/06/19 at 12:45 Guaifenesin (Robitussin) 200 mg PRN Q4HRS PRN PO COUGH; Start 02/06/19 at 12:45 Lorazepam (Ativan) 0.5 mg PRN Q4HRS PRN PO ANXIETY / AGITATION; Start 02/06/19 at 12:45 EZETIMIBE (Zetia) 10 mg DAILY PO Last administered on 02/07/19at 09:54; Start 02/07/19 at 09:00 Gabapentin (Neurontin) 300 mg BID PO Last administered on 02/07/19at 21:30; Start 02/06/19 at 22:00 Lisinopril (Prinivil) 5 mg DAILY PO Last administered on 02/07/19at 09:54; Start 02/07/19 at 09:00 Metoprolol Tartrate (Lopressor) 12.5 mg BID PO Last administered on 02/07/19at 09:54; Start 02/06/19 at 22:00 Nitroglycerin (Nitrostat) 0.4 mg PRN Q5MIN PRN SL CHEST PAIN; Start 02/06/19 at 21:15 Isosorbide Mononitrate (Imdur) 60 mg DAILY PO Last administered on 02/07/19at 09:54; Start 02/07/19 at 09:00 Active Scripts Active Brilinta (Ticagrelor) 90 Mg Tablet 90 Mg PO BID Nitrostat (Nitroglycerin) 0.4 Mg Tab.subl 0.4 Mg SL PRN Q5MIN PRN Reported Zetia (Ezetimibe) 10 Mg Tablet 10 Mg PO DAILY Gabapentin (Gabapentin) 300 Mg Capsule 300 Mg PO BID Isosorbide Mononitrate Er (Isosorbide Mononitrate) 60 Mg Tab.er.24h 60 Mg PO DAILY Lisinopril 5 Mg Tablet 5 Mg PO DAILY Aspir 81 (Aspirin) 81 Mg Tablet.dr 1 Tab PO DAILY LAST DOSE GIVEN: DATE: 2014 TIME: 9:00 am NEXT DOSE DUE: DATE: 2014 TIME: 9:00 am Metoprolol Tartrate 25 Mg Tablet 0.5 Tab PO BID LAST DOSE GIVEN: DATE: 2014 TIME: 9:00 am NEXT DOSE DUE: DATE: 2014 TIME: 9:00 pm Vitals/I & O Vital Sign - Last 24 Hours 02/07/19 02/07/19 02/07/19 02/07/19 15:00 16:10 16:25 16:31 Temp 98.2 98.2 99.3 99.3 98.2 98.2 99.3 99.3 Pulse 60 60 71 71 Resp 17 18 18 18 B/P (MAP) 102/51 (68) 102/51 103/71 103/71 Pulse Ox 99 O2 Delivery Room Air 02/07/19 02/07/19 02/07/19 02/07/19 17:25 18:23 19:20 20:00 Temp 98.3 98.7 98.1 98.3 98.7 98.1 Pulse 78 86 78 Resp 18 18 18 B/P (MAP) 102/67 92/59 99/62 (74) Pulse Ox 98 O2 Delivery Room Air Room Air 02/07/19 02/07/19 02/08/19 02/08/19 21:31 23:00 03:00 07:00 Temp 98.8 98.5 98.5 98.8 98.5 98.5 Pulse 78 77 57 72 Resp 18 18 18 B/P (MAP) 99/62 103/60 (74) 110/65 (80) 128/67 (87) Pulse Ox 99 100 98 O2 Delivery Room Air Room Air Room Air 02/08/19 02/08/19 07:10 10:56 Temp 98.7 98.7 Pulse 73 Resp 18 B/P (MAP) 112/66 (81) Pulse Ox 99 O2 Delivery Room Air Room Air Intake and Output 02/07/19 02/07/19 02/08/19 14:59 22:59 06:59 Intake Total 329 ml Balance 329 ml NINA HORTON MD Feb 08, 2019 11:11
--- NOTE | 2019-02-08 13:30 | NUR ---
SS following for discharge planning. SS reviewed pt chart. Pt is from home with spouse and is currently on room air. No discharge needs noted at this time. SS will continue to follow for discharge planning.
--- NOTE | 2019-02-08 13:37 | PDOC ---
Subjective: Subjective: Had a little blood with wiping yesterday. Tolerating PO. present - wonders if he should have an EGD along w/ colonoscopy. Objective: Objective: Nurse called this afternoon - pt ate yesterday but was kept NPO this morning in case of GI procedure, no bleeding. Gave okay to resume diet. Vital Signs: Vital Signs Date Time Temp Pulse Resp B/P (MAP) Pulse Ox O2 Delivery O2 Flow Rate FiO2 02/08/19 10:56 98.7 73 18 112/66 (81) 99 Room Air 98.7 Labs: Laboratory Tests Test 02/07/19 13:50 02/07/19 16:22 02/07/19 20:35 02/07/19 21:55 White Blood Count 7.0 x10^3/uL 9.2 x10^3/uL Red Blood Count 2.47 x10^6/uL 2.90 x10^6/uL Hemoglobin 7.9 g/dL 9.3 g/dL Hematocrit 23.3 % 27.3 % Mean Corpuscular Volume 94 fL 94 fL Mean Corpuscular Hemoglobin 32 pg 32 pg Mean Corpuscular Hemoglobin Concent 34 g/dL 34 g/dL Red Cell Distribution Width 13.5 % 13.7 % Platelet Count 195 x10^3/uL 220 x10^3/uL Glucose (Fingerstick) 140 mg/dL 125 mg/dL Test 02/08/19 07:25 02/08/19 07:35 02/08/19 10:54 Glucose (Fingerstick) 111 mg/dL 95 mg/dL White Blood Count 6.9 x10^3/uL Red Blood Count 2.84 x10^6/uL Hemoglobin 9.0 g/dL Hematocrit 26.5 % Mean Corpuscular Volume 93 fL Mean Corpuscular Hemoglobin 32 pg Mean Corpuscular Hemoglobin Concent 34 g/dL Red Cell Distribution Width 13.9 % Platelet Count 197 x10^3/uL PE: GEN: NAD LUNGS: CTAB HEART: RRR ABD: NABS, S/ND/NT NEURO/PSYCH: A & O �3 A/P: Hematochezia - resolving CRC screen - none CAD on ASA and Brilinta -- ADAT, plan for outpt colonoscopy +/- EGD. 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 ?DC CHARLIE David Feb 08, 2019 13:37
[2019-02-08 14:24] LABS: HEMATOCRIT 25.6 % (39.0-53.0); HEMOGLOBIN 8.8 g/dL (13.0-17.5); RED BLOOD COUNT 2.72 x10^6/uL (4.30-5.70); RED CELL DISTRIBUTION WIDTH 13.7 % (11.5-14.5)
[2019-02-08] MEDS: ACETAMINOPHEN 325 MG TABLET. PO PRN ×2 (14:55→20:49)
[2019-02-08] MEDS: GABAPENTIN 300 MG CAPSULE. PO SCH ×2 (14:55→20:50)
[2019-02-08] MEDS: EZETIMIBE 10 MG TABLET. PO SCH (14:56)
[2019-02-08] MEDS: METOPROLOL TART IMMED RELEASE 25 MG TABLET. PO SCH ×2 (14:56→20:50)
[2019-02-08] MEDS: ISOSORBIDE MONONITRATE ER 30 MG TAB.ER.24H PO SCH (14:57)
[2019-02-08] MEDS: LISINOPRIL 5 MG TABLET. PO SCH (14:58)
[2019-02-08 15:08] VITALS: BP 117/67
[2019-02-08 19:15] VITALS: BP 100/50
[2019-02-08 21:48] LABS: HEMOGLOBIN 8.9 g/dL (13.0-17.5); RED BLOOD COUNT 2.78 x10^6/uL (4.30-5.70); RED CELL DISTRIBUTION WIDTH 13.8 % (11.5-14.5); WHITE BLOOD COUNT 7.3 x10^3/uL (4.0-11.0)
[2019-02-08 23:20] VITALS: BP 85/47
[2019-02-09 02:44] VITALS: BP 103/60
[2019-02-09 07:00] VITALS: BP 94/58
[2019-02-09] MEDS ORDERED: PANTOPRAZOLE 40 MG TABLET.DR. PO SCH (07:30)
[2019-02-09] MEDS: METOPROLOL TART IMMED RELEASE 25 MG TABLET. PO SCH (09:00)
[2019-02-09] MEDS: ISOSORBIDE MONONITRATE ER 30 MG TAB.ER.24H PO SCH (09:00)
[2019-02-09] MEDS: LISINOPRIL 5 MG TABLET. PO SCH (09:00)
[2019-02-09] MEDS: GABAPENTIN 300 MG CAPSULE. PO SCH (09:26)
[2019-02-09] MEDS: EZETIMIBE 10 MG TABLET. PO SCH (09:26)
[2019-02-09 11:00] VITALS: BP 101/56
--- NOTE | 2019-02-09 11:31 | PDOC ---
PROGRESS NOTES Chief Complaint Chief Complaint discharge dx Hematochezia- with acute blood loss anemia, most likely secondary to diverticular source Plan advance diet serial cbcs if no further bleeding, then o/p colonoscopy CAD with stents on brilinta and asa 81 ADAT, plan for outpt colonoscopy +/- EGD. 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 Vital Signs Date Time Temp Pulse Resp B/P (MAP) Pulse Ox O2 Delivery O2 Flow Rate FiO2 02/09/19 09:02 64 94/58 02/09/19 07:00 98.3 16 97 Room Air 98.3 Physical Exam General: Alert, Oriented X3, No acute distress Heart: Regular rate, Normal S1, Normal S2 Lungs: Clear Abdomen: Normal bowel sounds, No tenderness Extremities: No clubbing, No cyanosis, No edema Skin: No rashes, No breakdown Labs LABS Laboratory Tests Test 02/08/19 14:10 02/08/19 16:25 02/08/19 20:42 02/08/19 21:45 White Blood Count 6.0 x10^3/uL (4.0-11.0) 7.3 x10^3/uL (4.0-11.0) Red Blood Count 2.72 x10^6/uL (4.30-5.70) 2.78 x10^6/uL (4.30-5.70) Hemoglobin 8.8 g/dL (13.0-17.5) 8.9 g/dL (13.0-17.5) Hematocrit 25.6 % (39.0-53.0) 26.0 % (39.0-53.0) Mean Corpuscular Volume 94 fL (79-100) 94 fL (79-100) Mean Corpuscular Hemoglobin 32 pg (25-35) 32 pg (25-35) Mean Corpuscular Hemoglobin Concent 35 g/dL (31-37) 34 g/dL (31-37) Red Cell Distribution Width 13.7 % (11.5-14.5) 13.8 % (11.5-14.5) Platelet Count 178 x10^3/uL (140-400) 208 x10^3/uL (140-400) Glucose (Fingerstick) 101 mg/dL (70-99) 148 mg/dL (70-99) Test 02/09/19 07:05 Glucose (Fingerstick) 113 mg/dL (70-99) Assessment and Plan Assessmemt and Plan Problems Medical Problems: (1) GI bleed Status: Acute Comment Review of Relevant I have reviewed the following items kelle (where applicable) has been applied. Labs Laboratory Tests Test 02/07/19 13:50 02/07/19 16:22 02/07/19 20:35 02/07/19 21:55 White Blood Count 7.0 x10^3/uL (4.0-11.0) 9.2 x10^3/uL (4.0-11.0) Red Blood Count 2.47 x10^6/uL (4.30-5.70) 2.90 x10^6/uL (4.30-5.70) Hemoglobin 7.9 g/dL (13.0-17.5) 9.3 g/dL (13.0-17.5) Hematocrit 23.3 % (39.0-53.0) 27.3 % (39.0-53.0) Mean Corpuscular Volume 94 fL (79-100) 94 fL (79-100) Mean Corpuscular Hemoglobin 32 pg (25-35) 32 pg (25-35) Mean Corpuscular Hemoglobin Concent 34 g/dL (31-37) 34 g/dL (31-37) Red Cell Distribution Width 13.5 % (11.5-14.5) 13.7 % (11.5-14.5) Platelet Count 195 x10^3/uL (140-400) 220 x10^3/uL (140-400) Glucose (Fingerstick) 140 mg/dL (70-99) 125 mg/dL (70-99) Test 02/08/19 07:25 02/08/19 07:35 02/08/19 10:54 02/08/19 14:10 Glucose (Fingerstick) 111 mg/dL (70-99) 95 mg/dL (70-99) White Blood Count 6.9 x10^3/uL (4.0-11.0) 6.0 x10^3/uL (4.0-11.0) Red Blood Count 2.84 x10^6/uL (4.30-5.70) 2.72 x10^6/uL (4.30-5.70) Hemoglobin 9.0 g/dL (13.0-17.5) 8.8 g/dL (13.0-17.5) Hematocrit 26.5 % (39.0-53.0) 25.6 % (39.0-53.0) Mean Corpuscular Volume 93 fL (79-100) 94 fL (79-100) Mean Corpuscular Hemoglobin 32 pg (25-35) 32 pg (25-35) Mean Corpuscular Hemoglobin Concent 34 g/dL (31-37) 35 g/dL (31-37) Red Cell Distribution Width 13.9 % (11.5-14.5) 13.7 % (11.5-14.5) Platelet Count 197 x10^3/uL (140-400) 178 x10^3/uL (140-400) Test 02/08/19 16:25 02/08/19 20:42 02/08/19 21:45 02/09/19 07:05 Glucose (Fingerstick) 101 mg/dL (70-99) 148 mg/dL (70-99) 113 mg/dL (70-99) White Blood Count 7.3 x10^3/uL (4.0-11.0) Red Blood Count 2.78 x10^6/uL (4.30-5.70) Hemoglobin 8.9 g/dL (13.0-17.5) Hematocrit 26.0 % (39.0-53.0) Mean Corpuscular Volume 94 fL (79-100) Mean Corpuscular Hemoglobin 32 pg (25-35) Mean Corpuscular Hemoglobin Concent 34 g/dL (31-37) Red Cell Distribution Width 13.8 % (11.5-14.5) Platelet Count 208 x10^3/uL (140-400) Laboratory Tests Test 02/08/19 14:10 02/08/19 16:25 02/08/19 20:42 02/08/19 21:45 White Blood Count 6.0 x10^3/uL (4.0-11.0) 7.3 x10^3/uL (4.0-11.0) Red Blood Count 2.72 x10^6/uL (4.30-5.70) 2.78 x10^6/uL (4.30-5.70) Hemoglobin 8.8 g/dL (13.0-17.5) 8.9 g/dL (13.0-17.5) Hematocrit 25.6 % (39.0-53.0) 26.0 % (39.0-53.0) Mean Corpuscular Volume 94 fL (79-100) 94 fL (79-100) Mean Corpuscular Hemoglobin 32 pg (25-35) 32 pg (25-35) Mean Corpuscular Hemoglobin Concent 35 g/dL (31-37) 34 g/dL (31-37) Red Cell Distribution Width 13.7 % (11.5-14.5) 13.8 % (11.5-14.5) Platelet Count 178 x10^3/uL (140-400) 208 x10^3/uL (140-400) Glucose (Fingerstick) 101 mg/dL (70-99) 148 mg/dL (70-99) Test 02/09/19 07:05 Glucose (Fingerstick) 113 mg/dL (70-99) Medications Current Medications Ondansetron HCl (Zofran) 4 mg PRN Q8HRS PRN IV NAUSEA/VOMITING; Start 02/06/19 at 08:45; Stop 02/07/19 at 08:44; Status DC Morphine Sulfate (Morphine Sulfate) 2 mg PRN Q2HR PRN IV PAIN; Start 02/06/19 at 08:45; Stop 02/07/19 at 08:44; Status DC Famotidine (Pepcid Vial) 20 mg BID IVP Last administered on 02/08/19at 11:05; Start 02/06/19 at 11:00; Stop 02/08/19 at 14:00; Status DC Sodium Chloride (Normal Saline Flush) 3 ml QSHIFT PRN IV AFTER MEDS AND BLOOD DRAWS; Start 02/06/19 at 12:45 Sodium Chloride 1,000 ml @ 100 mls/hr Q10H IV Last administered on 02/07/19at 09:54; Start 02/06/19 at 12:32; Stop 02/07/19 at 11:18; Status DC Acetaminophen (Tylenol) 650 mg PRN Q4HRS PRN PO TEMP OVER 100.4F OR MILD PAIN Last administered on 02/08/19at 20:51; Start 02/06/19 at 12:45 Clonidine HCl (Catapres) 0.1 mg PRN Q6HRS PRN PO SBP>160 OR DBP>90; Start 02/06/19 at 12:45 Albuterol Sulfate (Ventolin Neb Soln) 2.5 mg PRN Q4HRS PRN NEB SHORTNESS OF B REATH; Start 02/06/19 at 12:45 Guaifenesin (Robitussin) 200 mg PRN Q4HRS PRN PO COUGH; Start 02/06/19 at 12:45 Lorazepam (Ativan) 0.5 mg PRN Q4HRS PRN PO ANXIETY / AGITATION; Start 02/06/19 at 12:45 EZETIMIBE (Zetia) 10 mg DAILY PO Last administered on 02/09/19 09:27; Start 02/07/19 at 09:00 Gabapentin (Neurontin) 300 mg BID PO Last administered on 02/09/19 09:27; Start 02/06/19 at 22:00 Lisinopril (Prinivil) 5 mg DAILY PO Last administered on 02/08/19 14:59; Start 02/07/19 at 09:00 Metoprolol Tartrate (Lopressor) 12.5 mg BID PO Last administered on 02/08/19 20:51; Start 02/06/19 at 22:00 Nitroglycerin (Nitrostat) 0.4 mg PRN Q5MIN PRN SL CHEST PAIN; Start 02/06/19 at 21:15 Isosorbide Mononitrate (Imdur) 60 mg DAILY PO Last administered on 02/08/19at 14:59; Start 02/07/19 at 09:00 Pantoprazole Sodium (Protonix) 40 mg DAILYAC PO Last administered on 02/09/19at 09:27; Start 02/09/19 at 07:30 Active Scripts Active Brilinta (Ticagrelor) 90 Mg Tablet 90 Mg PO BID Nitrostat (Nitroglycerin) 0.4 Mg Tab.subl 0.4 Mg SL PRN Q5MIN PRN Reported Zetia (Ezetimibe) 10 Mg Tablet 10 Mg PO DAILY Gabapentin (Gabapentin) 300 Mg Capsule 300 Mg PO BID Isosorbide Mononitrate Er (Isosorbide Mononitrate) 60 Mg Tab.er.24h 60 Mg PO MATEUS LY Lisinopril 5 Mg Tablet 5 Mg PO DAILY Aspir 81 (Aspirin) 81 Mg Tablet.dr 1 Tab PO DAILY LAST DOSE GIVEN: DATE: 2014 TIME: 9:00 am NEXT DOSE DUE: DATE: 2014 TIME: 9:00 am Metoprolol Tartrate 25 Mg Tablet 0.5 Tab PO BID LAST DOSE GIVEN: DATE: 2014 TIME: 9:00 am NEXT DOSE DUE: DATE: 2014 TIME: 9:00 pm Vitals/I & O Vital Sign - Last 24 Hours 02/08/19 02/08/19 02/08/19 02/08/19 14:59 14:59 14:59 15:08 Temp 99.0 99.0 Pulse 79 79 79 79 Resp 18 B/P (MAP) 117/67 117/67 117/67 117/67 (84) Pulse Ox 99 O2 Delivery Room Air 02/08/19 02/08/19 02/08/19 02/08/19 19:15 20:00 20:51 23:20 Temp 99.2 99.3 99.2 99.3 Pulse 79 79 70 Resp 18 18 B/P (MAP) 100/50 (67) 100/50 85/47 (60) Pulse Ox 99 99 O2 Delivery Room Air Room Air Room Air 02/09/19 02/09/19 02/09/19 02/09/19 02:44 07:00 09:02 09:02 Temp 98.8 98.3 98.8 98.3 Pulse 82 64 64 64 Resp 18 16 B/P (MAP) 103/60 (74) 94/58 (70) 94/58 94/58 Pulse Ox 99 97 O2 Delivery Room Air Room Air 02/09/19 09:02 Pulse 64 B/P (MAP) 94/58 Intake and Output 02/08/19 02/08/19 02/09/19 15:00 23:00 07:00 Intake Total 120 ml 240 ml 480 ml Balance 120 ml 240 ml 480 ml SIMON DENSON MD Feb 09, 2019 11:31
--- NOTE | 2019-02-09 13:35 | PDOC ---
Subjective: Subjective: Feeling better today - had a headache yesterday. says she an daughter have concerns - wonder why 'scopes not pursued as inpt. has pics on her phone - one form yesterday w/ formed piece of dark brown stool w/ red blood surrounding. Objective: Objective: BP lowish. Vital Signs: Vital Signs Date Time Temp Pulse Resp B/P (MAP) Pulse Ox O2 Delivery O2 Flow Rate FiO2 02/09/19 09:02 64 94/58 02/09/19 07:20 Room Air 02/09/19 07:00 98.3 16 97 98.3 Labs: Laboratory Tests Test 02/08/19 14:10 02/08/19 16:25 02/08/19 20:42 02/08/19 21:45 White Blood Count 6.0 x10^3/uL 7.3 x10^3/uL Red Blood Count 2.72 x10^6/uL 2.78 x10^6/uL Hemoglobin 8.8 g/dL 8.9 g/dL Hematocrit 25.6 % 26.0 % Mean Corpuscular Volume 94 fL 94 fL Mean Corpuscular Hemoglobin 32 pg 32 pg Mean Corpuscular Hemoglobin Concent 35 g/dL 34 g/dL Red Cell Distribution Width 13.7 % 13.8 % Platelet Count 178 x10^3/uL 208 x10^3/uL Glucose (Fingerstick) 101 mg/dL 148 mg/dL Test 02/09/19 07:05 02/09/19 11:23 Glucose (Fingerstick) 113 mg/dL 120 mg/dL PE: GEN: NAD, up in chair LUNGS: CTAB HEART: RRR ABD: NABS, S/ND/NT NEURO/PSYCH: A & O �3 A/P: Hematochezia - slowing CRC screen - none CAD on ASA and Brilinta prior to admission - on PPI -- Still some stuttering bleeding. Can recheck Hgb and consider DC soon. Attempted to explain rationale for for outpt 'scopes. CHARLIE ROSAS Feb 09, 2019 13:35
[2019-02-09 15:28] VITALS: BP 101/57
--- NOTE | 2019-02-09 16:12 | NUR ---
Pt. c/o STALLINGS after blood was drawn. Dr. Scott corbett.
--- NOTE | 2019-02-09 17:00 | PDOC3 ---
Discharge Summary Date of Admission: Feb 06, 2019 Date of Discharge: Feb 09, 2019 Follow-Up: 3-5 days Admitting Diagnosis comment: discharge dx Hematochezia- with acute blood loss anemia, most likely secondary to diverticular source Plan advance diet serial cbcs if no further bleeding, then o/p colonoscopy CAD with stents on brilinta and asa 81 ADAT, plan for outpt colonoscopy +/- EGD. soon per gi 27 MIN PT EXAM, CHART REVIEW d/c planning , > 50% OF TIME SPENT WITH EXAM, CHART REVIEW, PT CARE COORDINATION History of Present Illness History of Present Illness NO more BRBPR last 3 BMS, just gas HGb up to 9 after BT yesterday for HGb 7.9 HAs been NPO by GI PLAN: Wait for GI rounds Dw him and FULL CODE WAs on Brilinta and ASA for cardiac stents hx [employer]GER Vitals Vitals Vital Signs Date Time Temp Pulse Resp B/P (MAP) Pulse Ox O2 Delivery O2 Flow Rate FiO2 02/09/19 09:02 64 94/58 02/09/19 07:00 98.3 16 97 Room Air 98.3 Physical Exam General: Alert, Oriented X3, No acute distress Heart: Regular rate, Normal S1, Normal S2 Lungs: Clear Abdomen: Normal bowel sounds, No tenderness Extremities: No clubbing, No cyanosis, No edema Skin: No rashes, No breakdown FINAL DIAGNOSIS Problems Medical Problems: (1) GI bleed Status: Acute Brief Hospital Course Mr. Maldonado is a 58 old [sex] who presented with [ acute rectal bleeding] CONDITION AT DISCHARGE: Improved Discharge Medications Current Medications Ondansetron HCl (Zofran) 4 mg PRN Q8HRS PRN IV NAUSEA/VOMITING; Start 02/06/19 at 08:45; Stop 02/07/19 at 08:44; Status DC Morphine Sulfate (Morphine Sulfate) 2 mg PRN Q2HR PRN IV PAIN; Start 02/06/19 at 08:45; Stop 02/07/19 at 08:44; Status DC Famotidine (Pepcid Vial) 20 mg BID IVP Last administered on 02/08/19at 11:05; Start 02/06/19 at 11:00; Stop 02/08/19 at 14:00; Status DC Sodium Chloride (Normal Saline Flush) 3 ml QSHIFT PRN IV AFTER MEDS AND BLOOD DRAWS; Start 02/06/19 at 12:45 Sodium Chloride 1,000 ml @ 100 mls/hr Q10H IV Last administered on 02/07/19at 09:54; Start 02/06/19 at 12:32; Stop 02/07/19 at 11:18; Status DC Acetaminophen (Tylenol) 650 mg PRN Q4HRS PRN PO TEMP OVER 100.4F OR MILD PAIN Last administered on 02/08/19at 20:51; Start 02/06/19 at 12:45 Clonidine HCl (Catapres) 0.1 mg PRN Q6HRS PRN PO SBP>160 OR DBP>90; Start 02/06/19 at 12:45 Albuterol Sulfate (Ventolin Neb Soln) 2.5 mg PRN Q4HRS PRN NEB SHORTNESS OF BREATH; Start 02/06/19 at 12:45 Guaifenesin (Robitussin) 200 mg PRN Q4HRS PRN PO COUGH; Start 02/06/19 at 12:45 Lorazepam (Ativan) 0.5 mg PRN Q4HRS PRN PO ANXIETY / AGITATION; Start 02/06/19 at 12:45 EZETIMIBE (Zetia) 10 mg DAILY PO Last administered on 02/09/19at 09:27; Start 02/07/19 at 09:00 Gabapentin (Neurontin) 300 mg BID PO Last administered on 02/09/19at 09:27; Start 02/06/19 at 22:00 Lisinopril (Prinivil) 5 mg DAILY PO Last administered on 02/08/19at 14:59; Start 02/07/19 at 09:00 Metoprolol Tartrate (Lopressor) 12.5 mg BID PO Last administered on 02/08/19 20:51; Start 02/06/19 at 22:00 Nitroglycerin (Nitrostat) 0.4 mg PRN Q5MIN PRN SL CHEST PAIN; Start 02/06/19 at 21:15 Isosorbide Mononitrate (Imdur) 60 mg DAILY PO Last administered on 02/08/19at 14:59; Start 02/07/19 at 09:00 Pantoprazole Sodium (Protonix) 40 mg DAILYAC PO Last administered on 02/09/19at 09:27; Start 02/09/19 at 07:30 Active Scripts Active Brilinta (Ticagrelor) 90 Mg Tablet 90 Mg PO BID Nitrostat (Nitroglycerin) 0.4 Mg Tab.subl 0.4 Mg SL PRN Q5MIN PRN Reported Zetia (Ezetimibe) 10 Mg Tablet 10 Mg PO DAILY Gabapentin (Gabapentin) 300 Mg Capsule 300 Mg PO BID Isosorbide Mononitrate Er (Isosorbide Mononitrate) 60 Mg Tab.er.24h 60 Mg PO DAILY Lisinopril 5 Mg Tablet 5 Mg PO DAILY Aspir 81 (Aspirin) 81 Mg Tablet.dr 1 Tab PO DAILY LAST DOSE GIVEN: DATE: 2014 TIME: 9:00 am NEXT DOSE DUE: DATE: 2014 TIME: 9:00 am Metoprolol Tartrate 25 Mg Tablet 0.5 Tab PO BID LAST DOSE GIVEN: DATE: 2014 TIME: 9:00 am NEXT DOSE DUE: DATE: 2014 TIME: 9:00 pm Vital Signs Vital Signs Date Time Temp Pulse Resp B/P (MAP) Pulse Ox O2 Delivery O2 Flow Rate FiO2 02/09/19 15:28 98.2 61 16 101/57 (72) 98 Room Air 98.2 Labs Laboratory Tests Test 02/07/19 20:35 02/07/19 21:55 02/08/19 07:25 02/08/19 07:35 Glucose (Fingerstick) 125 mg/dL (70-99) 111 mg/dL (70-99) White Blood Count 9.2 x10^3/uL (4.0-11.0) 6.9 x10^3/uL (4.0-11.0) Red Blood Count 2.90 x10^6/uL (4.30-5.70) 2.84 x10^6/uL (4.30-5.70) Hemoglobin 9.3 g/dL (13.0-17.5) 9.0 g/dL (13.0-17.5) Hematocrit 27.3 % (39.0-53.0) 26.5 % (39.0-53.0) Mean Corpuscular Volume 94 fL (79-100) 93 fL (79-100) Mean Corpuscular Hemoglobin 32 pg (25-35) 32 pg (25-35) Mean Corpuscular Hemoglobin Concent 34 g/dL (31-37) 34 g/dL (31-37) Red Cell Distribution Width 13.7 % (11.5-14.5) 13.9 % (11.5-14.5) Platelet Count 220 x10^3/uL (140-400) 197 x10^3/uL (140-400) Test 02/08/19 10:54 02/08/19 14:10 02/08/19 16:25 02/08/19 20:42 Glucose (Fingerstick) 95 mg/dL (70-99) 101 mg/dL (70-99) 148 mg/dL (70-99) White Blood Count 6.0 x10^3/uL (4.0-11.0) Red Blood Count 2.72 x10^6/uL (4.30-5.70) Hemoglobin 8.8 g/dL (13.0-17.5) Hematocrit 25.6 % (39.0-53.0) Mean Corpuscular Volume 94 fL (79-100) Mean Corpuscular Hemoglobin 32 pg (25-35) Mean Corpuscular Hemoglobin Concent 35 g/dL (31-37) Red Cell Distribution Width 13.7 % (11.5-14.5) Platelet Count 178 x10^3/uL (140-400) Test 02/08/19 21:45 02/09/19 07:05 02/09/19 11:23 02/09/19 14:00 White Blood Count 7.3 x10^3/uL (4.0-11.0) Red Blood Count 2.78 x10^6/uL (4.30-5.70) Hemoglobin 8.9 g/dL (13.0-17.5) 8.9 g/dL (13.0-17.5) Hematocrit 26.0 % (39.0-53.0) Mean Corpuscular Volume 94 fL (79-100) Mean Corpuscular Hemoglobin 32 pg (25-35) Mean Corpuscular Hemoglobin Concent 34 g/dL (31-37) Red Cell Distribution Width 13.8 % (11.5-14.5) Platelet Count 208 x10^3/uL (140-400) Glucose (Fingerstick) 113 mg/dL (70-99) 120 mg/dL (70-99) Laboratory Tests Test 02/08/19 20:42 02/08/19 21:45 02/09/19 07:05 02/09/19 11:23 Glucose (Fingerstick) 148 mg/dL (70-99) 113 mg/dL (70-99) 120 mg/dL (70-99) White Blood Count 7.3 x10^3/uL (4.0-11.0) Red Blood Count 2.78 x10^6/uL (4.30-5.70) Hemoglobin 8.9 g/dL (13.0-17.5) Hematocrit 26.0 % (39.0-53.0) Mean Corpuscular Volume 94 fL (79-100) Mean Corpuscular Hemoglobin 32 pg (25-35) Mean Corpuscular Hemoglobin Concent 34 g/dL (31-37) Red Cell Distribution Width 13.8 % (11.5-14.5) Platelet Count 208 x10^3/uL (140-400) Test 02/09/19 14:00 Hemoglobin 8.9 g/dL (13.0-17.5) Allergies Allergies Coded Allergies Type Severity Reaction Last Updated Verified No Known Drug Allergies 03/19/16 No Disposition/Orders: D/C to Home Patient Instructions d/c planning 27 min SIMON DENSON MD Feb 09, 2019 16:59
[2019-02-09] MEDS ORDERED: ACET325T9 PO (17:01)
[2019-02-09] MEDS ORDERED: ALBU2.5V8 NEB (17:01)
[2019-02-09] MEDS ORDERED: PANT40TA77 PO (17:01)
--- NOTE | 2019-02-09 18:22 | NUR ---
Pt. discharged to home with Rx, verbalized understanding of discharge instructions.
== END 2019-02-09 18:23 | disposition home or self-care (01) | DRG 378 ==
LOC: ER 05:44 → 4 NORTH 07:19
PROVIDERS: ADMIT Family Medicine; ATTEND Family Medicine
PROC: 30233N1 Transfusion of Nonautologous Red Blood Cells into Peripheral Vein, Percutaneous Approach (ICD-10-PCS; principal; 2019-02-07)
DX: K57.91 Diverticulosis of intestine, part unspecified, without perforation or abscess with bleeding (principal); D62 Acute posthemorrhagic anemia; I25.10 Atherosclerotic heart disease of native coronary artery without angina pectoris; E78.00 Pure hypercholesterolemia, unspecified; E11.9 Type 2 diabetes mellitus without complications; I50.9 Heart failure, unspecified; I11.0 Hypertensive heart disease with heart failure; E78.5 Hyperlipidemia, unspecified; I25.2 Old myocardial infarction; Z95.1 Presence of aortocoronary bypass graft; Z95.5 Presence of coronary angioplasty implant and graft; Z82.49 Family history of ischemic heart disease and other diseases of the circulatory system
CPT/HCPCS: 36415; 80048; 80053; 80076; 81001; 82274; 82962; 84484; 85018; 85025; 85027; 85610; 85730; 86850; 86900; 86901; 86920; 93005; J3490; J7030; P9016; 99285-25; G0378

== ENCOUNTER → 2019-04-13 | Day surgery (SDC) | payer OTHER ==
[~2019-04-13] MED LIST changes: +ALBU2.5V8 NEB; +EZET10TA20 PO; +GABA300C18 PO; +HYDROmorphone 2 MG/ML VIAL IV PRN; +ISOS60TA2 PO; +IV RINGERS,LACTATED 1000ML 1,000 ML IV SCH; +MORPHINE SULFATE 2 MG/ML VIAL. IV PRN; -NITR0.4T SL; +NITR0.4T24 SL; +ONDANSETRON PF 4 MG/2 ML VIAL. IV PRN; +PANT40TA77 PO; +PROCHLORPERAZINE 10 MG/2 ML VIAL. IV PRN; +PROPOFOL 40 ML IV ONE; +fentaNYL PF VIAL 100 MCG/2 ML VIAL IV PRN
[2019-04-13 08:30] VITALS: BP 161/84
== END ==
LOC: ENDOS 06:32
PROVIDERS: ATTEND Internal Medicine Gastroenterology
DX: K29.50 Unspecified chronic gastritis without bleeding (principal); K57.30 Diverticulosis of large intestine without perforation or abscess without bleeding; K64.0 First degree hemorrhoids; D50.9 Iron deficiency anemia, unspecified; K44.9 Diaphragmatic hernia without obstruction or gangrene; I25.2 Old myocardial infarction; E11.9 Type 2 diabetes mellitus without complications; E78.00 Pure hypercholesterolemia, unspecified; I10 Essential (primary) hypertension; I25.10 Atherosclerotic heart disease of native coronary artery without angina pectoris; E66.3 Overweight; Z68.28 Body mass index [BMI] 28.0-28.9, adult; Z95.5 Presence of coronary angioplasty implant and graft; Z95.1 Presence of aortocoronary bypass graft; Z98.890 Other specified postprocedural states; Z98.42 Cataract extraction status, left eye; Z98.41 Cataract extraction status, right eye; Z96.1 Presence of intraocular lens
CPT/HCPCS: 43235; 45378; J2704

== ENCOUNTER → 2019-08-15 | Outpatient (CLI) | payer OTHER ==
[2019-04-13 08:30] VITALS: BP 161/84
[~2019-08-15] MED LIST changes: -HYDROmorphone 2 MG/ML VIAL IV PRN; -IV RINGERS,LACTATED 1000ML 1,000 ML IV SCH; -MORPHINE SULFATE 2 MG/ML VIAL. IV PRN; -ONDANSETRON PF 4 MG/2 ML VIAL. IV PRN; -PROCHLORPERAZINE 10 MG/2 ML VIAL. IV PRN; -PROPOFOL 40 ML IV ONE; -fentaNYL PF VIAL 100 MCG/2 ML VIAL IV PRN
--- NOTE | 2019-08-15 09:13 | KCIC ---
ABDOMEN COMPLETE History: Abdominal pain, bloating for one month Comparison: None FINDINGS: Multiple sonographic images of the abdomen are submitted. Pancreas is not well-visualized due to bowel gas, no obvious abnormality of the limited visualized pancreatic head and proximal body. Gallbladder is present without pericholecystic fluid or gallbladder wall thickening. There is small focus of echogenicity adherent to the gallbladder wall. No obvious focal hepatic lesion is demonstrated, although limited evaluation of the liver parenchyma due to bowel gas. Right kidney is also not well visualized due to bowel gas, estimated about 12 x 4.7 x 6.3 cm without hydronephrosis. Left kidney is also poorly visualized due to bowel gas, estimated about 13 x 5 x 5.6 cm, no significant hydronephrosis. There is a hypoechoic lesion of the inferior, lateral aspect of left kidney on the order of 2 x 2.4 x 2 cm. Spleen measured about 10.4 cm. Common bile duct is within normal limits about 0.5 cm. Impression: 1. Exam is limited as stated due to bowel gas. There is likely cyst of the inferior lateral left kidney. Small focus of echogenicity adherent to the gallbladder wall may be due to small nonshadowing stone or polyp. Electronically signed by: Daniele Jordan MD (08/15/2019 9:10 AM) [id number]
== END ==
LOC: KCIC US 07:51
PROVIDERS: ATTEND Family Medicine
DX: R10.9 Unspecified abdominal pain (principal)
CPT/HCPCS: 76700

== ENCOUNTER 2021-10-03 10:18 | Day surgery (SDC) | payer OTHER ==
[~2021-10-03] VITALS: Ht 182.9 cm; Wt 97.2 kg
[~2021-10-03 10:18] MED LIST changes: +AMLO-187 PO; -AMLO10TA8 PO; +ASPI-630 PO; +BUPIVACAINE MPF 0.5% 30 ML VIAL. ONE; -CINA30TA2 PO; +CINA30TA24 PO; +CYCL10TA19 PO; +HYDR-2765 PO; +HYDROmorphone 2 MG/ML INJ. IVP PRN; -ISOS30TA4 PO; +ISOS30TA68 PO; -ISOS60TA2 PO; +ISOS60TA55 PO; +IV RINGERS,LACTATED 1000ML 1,000 ML IV SCH; +LIDOCAINE 1% Multi-Dose 20 ML VIAL. ONE; -LISI-338 PO; +LISI5TAB15 PO; +MORPHINE SULFATE 2 MG/ML INJ. IVP PRN; +PROCHLORPERAZINE 10 MG/2 ML VIAL. IVP PRN; +fentaNYL PF VIAL 100 MCG/2 ML VIAL IVP PRN
[2021-10-03 10:52] VITALS: BP 130/71
[2021-10-03] MEDS ORDERED: HYDR-2761 PO (12:12)
--- NOTE | 2021-10-03 12:13 | DISCH ---
DISCHARGE INSTRUCTIONS Condition on Discharge Condition on Discharge: Stable Activity After Discharge Activity Instructions for Disc: Activity as tolerated Other activity instructions: Okay to use left upper extremity for light ADLs Bathing Instructions: No Tub Bath until see Lifting Instructions after Dis: No heavy lifting, No pulling or pushing, Do not lift >10 pounds Exercise Instruction after Dis: Walk 15 min, 3 x per day, Exercise per Card. Rehab Driving Instructions after Dis: No driving for 2 weeks Weight Bearing Status after Di: No restrictions, As tolerated Diet after Discharge Diet after Discharge: Regular, Diabetic No Calorie Level Wound Incision Care Wound/Incision Care: Ice to area for comfort, Keep wound/cast CDI, Keep wound elevated, Change dressing, May get incision wet Other wound/incision instructi: Change dressing in 2 days Contacting the DRChandan after DC Call your doctor for: Concerns you may have Follow-Up Follow up with: Surgeon in 2-week EDIE SUN II, MD Oct 03, 2021 12:13
[2021-10-03] MEDS ORDERED: PROPOFOL 10 MG/ML (20ML) VIAL. IV ONE (12:20)
[2021-10-03] MEDS ORDERED: LIDOCAINE 2% PF 5 ML VIAL. ONE (12:20)
[2021-10-03] MEDS ORDERED: fentaNYL PF VIAL 100 MCG/2 ML VIAL ONE (12:21)
--- NOTE | 2021-10-03 12:22 | PDOC4 ---
Operative Note Operative Note Date of procedure: 09/25/2021 Surgeon: Miguel Sun Computer Operations Manager: Abebe Benz and Sushma Castillo Preoperative gnosis: Left cubital tunnel syndrome Postop diagnosis: Same Procedure performed: Open left cubital tunnel release Anesthesia: General Tourniquet time: 12 min Blood loss: 10 mL Complications: None Reason for procedure: Patient is a very pleasant 60-year-old gentleman with a clinical presentation consistent with cubital tunnel syndrome who had tried and failed conservative therapies. EMG had been performed. We had a discussion of the risk benefits alternatives to surgery and he wished to proceed. Description of procedure: Patient was greeted in the preoperative area by myself or the correct extremity was verified and marked. He was taken back to the operative suite and antibiotics were started as he was brought back. Once in the operating room, transferred gently supine to the operating table and secured to the bed with all pressure points padded. The hand table was attached to the operating room table. Nonsterile tourniquet was applied to the left upper extremity. Left upper extremities prepped and draped in the usual sterile fashion and we conducted our standard preoperative timeout. After this, the extremity was exsanguinated with an Esmarch and tourniquet insufflated to 250 mmHg. I then palpated for the medial epicondyle and kenrick a line for my planned incision posterior to this. Skin was incised with a scalpel and I dissected subcutaneous tissue with tenotomy's, using bipolar cautery for hemostasis as I proceeded. I identified the ulnar tunnel and open this and identified the ulnar nerve. I proceeded to use a tenotomy's to release the cubital tunnel into the triceps and then into the proximal aspect of the flexor mass. I then palpate along the course of the nerve to help and tried accomplish a complete release. I then took the elbow through repeated flexion and extension movements and noted no subluxation of the ulnar nerve. After this, tourniquet was let down and hemostasis was ensured. Inverted interrupted 2-0 Vicryl was used for subcutaneo us tissue and running 3-0 Monocryl in a buried subcuticular fashion for skin. Prior to wound closure, all counts correct x2. Local anesthetic was infiltrated in the periincisional subcutaneous tissue. No complications. At the inclusion, the left upper extremity was cleansed and dried and a soft sterile bulky dressing was applied. Patient was awakened anesthesia transferred gently supine to the recovery room cart taken to PACU in stable and extubated condition. Postoperative plan is to discharge him home, he can use his arm and hand for light ADLs. I will see him back in 2 weeks, sooner should a problem arise MIGUEL SUN II, MD Oct 03, 2021 12:22
[2021-10-03] MEDS ORDERED: PHENYLEPHRINE in 0.9% NACL PF 1 MG/10 ML SYRINGE. IV ONE (12:34)
[2021-10-03] MEDS ORDERED: LIDOCAINE 1% Multi-Dose 20 ML VIAL. INJ ONE (12:38)
[2021-10-03] MEDS ORDERED: BUPIVACAINE MPF 0.5% 30 ML VIAL. IJ ONE (12:38)
[2021-10-03] MEDS ORDERED: HYDROcodone/APAP 5/325MG 1 TAB TABLET PO ONE (13:30)
[2021-10-03 13:31] VITALS: BP 133/77
== END 2021-10-03 14:45 | disposition home or self-care (01) ==
LOC: SURG 10:18
PROVIDERS: ATTEND Orthopaedic Surgery Sports Medicine
DX: G56.22 Lesion of ulnar nerve, left upper limb (principal); I25.10 Atherosclerotic heart disease of native coronary artery without angina pectoris; I10 Essential (primary) hypertension; E78.00 Pure hypercholesterolemia, unspecified; E11.9 Type 2 diabetes mellitus without complications; M19.90 Unspecified osteoarthritis, unspecified site; Z79.82 Long term (current) use of aspirin; Z79.899 Other long term (current) drug therapy; Z98.890 Other specified postprocedural states
CPT/HCPCS: 64718; A4364; A4930; A6223; A6402; A6450; J0690; J2370; J2704; J3010; J3490; A4452; A4657